=== PATIENT | female | born 1945 | race Caucasian/White ===

== ENCOUNTER → 2018-03-20 10:10 | Outpatient (CLI) | payer MEDICARE, SELFPAY ==
--- NOTE | 2018-03-20 10:14 | MM_ITS ---
MM Dig screening mamm BI w/CAD ORDERING PHYSICIAN : [facility] PATIENT AGE: 72 years GENDER: Female COMPARISON: August 2016, April 2015, 2013. Also additional views from April 2017. INDICATION: ITS.REASON: SCREENING no hormones no new complaints. Noncontributory family history TECHNIQUE: Standard CC and MLO images were obtained. R2 CAD reviewed. FINDINGS: Breast appears similar to previous studies with no significant new findings. Again There is moderately dense regions of fibroglandular tissue at the central central and superior breasts bilateral.. . no dominant mass nor suspicious calcifications.. RIGHT BREAST:Stereotactic biopsy at right breast is removed small calcifications here with a stable post biopsy metallic marker in this region. If anything the associated density here is diminished since the April 2017 study. Just anterior to this are dense calcifications from likely fibroadenoma or old fat necrosis. Subtle distortion of the central breast from likely previous biopsy appears similar. Stable. Follow-up in one year adequate LEFT BREAST:. There is been a previous stereotactic biopsy at the at the left breast of this is at the lateral/slight inferior retroareolar region with metallic marker clip seen here.. Left breast is stable with no significant new findings. Follow-up one year adequate. IMPRESSION Stable bilateral mammogram.. Follow-up in one year recommended Moderately dense breast with no significant new areas of concern. Previous stereotactic biopsy bilaterally BI-RADS Category: 2 Benign Finding(s) RECOMMENDED FOLLOW-UP: 1YR 1 YEAR FOLLOW-UP (A letter has been sent to the patient regarding results of the study.)
== END ==
PROVIDERS: PCP Nurse Practitioner Obstetrics & Gynecology; Visit Provider Nurse Practitioner Obstetrics & Gynecology
DX: Z12.31 Encounter for screening mammogram for malignant neoplasm of breast (principal)
CPT/HCPCS: 77067

== ENCOUNTER → 2018-06-19 12:41 | Outpatient (CLI) | payer MEDICARE, SELFPAY ==
--- NOTE | 2018-06-19 12:44 | XR_ITS ---
XR DEXA axial skeleton HISTORY: ITS.REASON: POST MENOPAUSAL ORDERING PHYSICIAN: Chente Arriaga MD PATIENT AGE: 73 years COMPARISON: None FINDINGS: The BMD measured at the Right femoral neck is 0.961 g/cm squared with a T score of -0.6. This is considered Normal according to the World Health Organization criteria. Fracture risk is Low. Treatment is advised. L1-L4 density has a T score of -0.2 within normal limits IMPRESSION: Normal bone density. Low fracture risk. Suggest follow-up exam May 2020
[2018-06-19 16:18] LABS: Anion Gap 14.5 mEq/L (5-15); Blood Urea Nitrogen 22 mg/dL (7-18); Calcium 9.6 mg/dL (8.5-10.1); Carbon Dioxide 26 mmol/L (21.0-32.0); Chloride 106 mmol/L (98-107); Estimated Glomerular Filt Rate 55 ml/min (>60); GFR (African American) 66 ML/MIN (>60); Glucose 98 mg/dL (74-106); Potassium 5.5 mmoL/L (3.5-5.1); Sodium 141 mmol/L (136-145)
== END ==
PROVIDERS: PCP Family Medicine; Visit Provider Family Medicine
DX: Z78.0 Asymptomatic menopausal state (principal); E87.5 Hyperkalemia
CPT/HCPCS: 36415; 77080; 80048

== ENCOUNTER → 2019-01-24 07:34 | Outpatient (CLI) | payer MEDICARE, SELFPAY ==
--- NOTE | 2019-01-24 07:40 | NVE_ITS ---
Venous Exam Indications: 729.5 Pain in limb. IMPRESSIONS 1. There is no evidence of significant Reflux. 2. No evidence of deep or superficial vein thrombosis involving the right lower extremity Right lower extremity venous duplex evaluation. Doppler flow study including spectral analysis, color and bullock scale imaging. Location: Vascular laboratory. Patient status: Outpatient. Tables: Venous flow and imaging: + +-------+ + Location Overall Flow properties + +-------+ + Right common femoral Patent Normal phasicity; spontaneous; normal augmentation; compressible + +-------+ + Right saphenofemoral junction Patent Compressible + +-------+ + Right profunda femoral Patent Compressible + +-------+ + Right femoral Patent Normal phasicity; spontaneous; normal augmentation; compressible + +-------+ + Right greater saphenous Patent Normal phasicity; spontaneous; normal augmentation; compressible + +-------+ + Right popliteal Patent Normal phasicity; spontaneous; normal augmentation; compressible + +-------+ + Right posterior tibial Patent Compressible + +-------+ + Right peroneal Patent Compressible + +-------+ + Right gastrocnemius Patent Compressible + +-------+ + Right soleal Patent Compressible + +-------+ + (Report amended ) Electronically signed by: Oli Bell [id number]
--- NOTE | 2019-01-24 08:05 | XR_ITS ---
XR hip RT 2-3V w/pelvis HISTORY: ITS.REASON: RT LEG PAIN ORDERING PHYSICIAN: Chente Arriaga MD PATIENT AGE: 73 years COMPARISON: None FINDINGS: No fracture or dislocation is evident. There is mild asymmetrical joint space narrowing of the right hip with minor spurring of the acetabulum. The left hip appears normal. The SI joints and symptoms pubis are normal. IMPRESSION: Mild to moderate osteoarthritic change right hip, no acute fracture seen
--- NOTE | 2019-01-24 08:05 | XR_ITS ---
XR knee RT 3V HISTORY: Right knee pain ITS.REASON: RT LEG PAIN ORDERING PHYSICIAN: Chente Arriaga MD PATIENT AGE: 73 years COMPARISON: None FINDINGS: No fracture or dislocation. No lytic or blastic change. Normal mineralization. There is mild joint space narrowing medially and there is spurring the tibial spines. There is prominent narrowing of the patellofemoral space. There is a small oval ossification measuring 7 mm in length projecting over the posterior tibial plateau best seen on the lateral projection. This could be an old osteochondral fracture of the lateral tibial spine presenting as a loose body within the joint. There is No definite effusion. IMPRESSION: Mild to moderate degenerative change, possible loose body as described, consider follow-up MRI scan for better evaluation.
== END ==
PROVIDERS: PCP Family Medicine; Visit Provider Family Medicine
DX: M79.604 Pain in right leg (principal); R60.0 Localized edema
CPT/HCPCS: 73502; 73562; 93971

== ENCOUNTER → 2019-02-04 07:49 | Outpatient (CLI) | payer MEDICARE, SELFPAY ==
--- NOTE | 2019-02-04 07:51 | MR_ITS ---
MR knee RT wo con HISTORY: Knee pain and swelling, pain with bending, possible loose body ITS.REASON: LOOSE BODY IN KNEE, RIGHT ORDERING PHYSICIAN: Chente Arriaga MD PATIENT AGE: 73 years Comparison: 01/24/2019 TECHNIQUE: Standard multiplanar multiecho sequences are performed without contrast. FINDINGS: The cruciate ligaments are intact. The collateral ligaments, patellar tendon, and quadriceps tendon appear intact. There is a horizontal tear involving the posterior horn of the lateral meniscus. There is grade 2 signal in the posterior horn of the medial meniscus but does not meet the strict MRI criteria for meniscal tear. There is mild thinning of the patellar cartilage along the lateral aspect. There are mild to moderate osteoarthritic changes of all 3 compartments. There is a small amount of bone marrow edema involving the lateral aspect of the distal femur and proximal tibia laterally with a small focal area of decreased T1 and increased T2 signal in the subcortical region of the lateral tibial plateau centrally. There is a medium sized suprapatellar effusion and there is a loculated Little's cyst measuring 5.8 cm cephalad to caudad and 1.2 cm in AP dimension. There was a question of a loose body on the radiograph along the knee joint posteriorly and centrally. This is likely related to an osteophyte of the lateral tibial spine as seen on the coronal T1-weighted image #18. IMPRESSION: 1. Horizontal tear involves the posterior horn lateral meniscus. 2. Tricompartmental osteoarthritic change with edema size suprapatellar effusion and loculated Little's cyst. 3. There are some mild bone marrow edema involving the lateral aspect of the distal femur and proximal tibia may related to the underlying osteoarthritic change. More focal area of decreased subarticular T1 and increased T2 signal is present in the central aspect of the lateral tibial plateau and could be related to a developing area of osteochondritis 4. No loose body apparent. Radiographic abnormality is felt to represent an atypical osteophyte
== END ==
PROVIDERS: PCP Family Medicine; Visit Provider Family Medicine
DX: M23.41 Loose body in knee, right knee (principal)
CPT/HCPCS: 73721

== ENCOUNTER → 2019-03-07 09:37 | Outpatient (CLI) | payer MEDICARE, SELFPAY ==
--- NOTE | 2019-03-07 09:41 | XR_ITS ---
XR knee RT 4V HISTORY: ITS.REASON: knee pain ORDERING PHYSICIAN: Nusrat Velazquez MD PATIENT AGE: 73 years COMPARISON: MRI scan right knee 02/04/2019 and plain films right knee 01/24/2019 FINDINGS: There is prominent spurring of the tibial spines. There is mild joint space narrowing laterally. There is minor narrowing of patellofemoral space. Again noted is a small smoothly marginated bone fragment projecting posterior to the femoral condyles on the lateral view and possibly resenting a periarticular calcification or ossification since no loose body is identified on MRI scan. No definite effusion is noted. IMPRESSION: Stable mild degenerative changes of the knee as noted
== END ==
PROVIDERS: PCP Family Medicine; Visit Provider Orthopaedic Surgery
DX: M25.561 Pain in right knee (principal)
CPT/HCPCS: 73564

== ENCOUNTER → 2019-05-28 15:38 | Outpatient (CLI) | payer MEDICARE, SELFPAY ==
--- NOTE | 2019-05-28 15:41 | MM_ITS ---
PROCEDURE: MM DIG SCREENING MAMM BI W/CAD CLINICAL INDICATION: SCREENING There is no personal or family history of breast cancer. Have been previous biopsies on each breast for benign disease. COMPARISON: DMDXUR DIG MAMM-DX UNI-RT W/CAD from 09/27/2016 DMDXUWAR DIG MAMM-DX UNI RT W/AV W/CAD from 05/08/2017 [facility] MM Dig screening mamm BI w/CAD from 03/20/2018 TECHNIQUE: Standard CC and MLO images were obtained. R2 CAD reviewed. FINDINGS: Moderate somewhat heterogenic fibroglandular densities are seen in the central portions of both breasts. There are stable macrocalcifications right breast and there are few benign-appearing microcalcifications left breast. There is a biopsy clip seen in each breast. There is no suspicious lesion in either breast and no suspicious microcalcifications. IMPRESSION: Moderate breast density with no suspicious lesions seen BI-RAD Category: 2 Benign Finding(s) FOLLOW-UP: 1YR 1 Year Follow-up (A letter has been sent to the patient regarding results of the study.) Dictated by: Dr. Anthony Rodas MD 05/30/2019 10:[address] Anthony Rodas MD in [place] 05/30/2019 10:41
== END ==
PROVIDERS: PCP Family Medicine; Visit Provider Nurse Practitioner Obstetrics & Gynecology
DX: Z12.31 Encounter for screening mammogram for malignant neoplasm of breast (principal)
CPT/HCPCS: 77067

== ENCOUNTER → 2020-05-31 10:39 | Outpatient (CLI) | payer MEDICARE, SELFPAY ==
--- NOTE | 2020-05-31 10:43 | MM_ITS ---
PROCEDURE: MM DIG SCREENING MAMM BI W/CAD Digital Breast Tomosynthesis Included CLINICAL INDICATION: SCREENING There is no personal or family history of breast cancer. There has been a previous biopsy left breast for benign disease. COMPARISON: MG DMDXUWAR DIG MAMM-DX UNI RT W/AV W/CAD from 05/08/2017 MG [facility] MM Dig screening mamm BI w/CAD from 03/20/2018 MG MM DIG SCREENING MAMM BI W/CAD from 05/28/2019 TECHNIQUE: Standard CC and MLO images and 3D Tomosynthesis was obtained. R2 CAD reviewed. FINDINGS: Scattered fibroglandular densities are seen in both breasts. There is stable benign-appearing macrocalcifications right breast. There are a few scattered benign-appearing microcalcifications in each breast. There is no new or suspicious lesion in either breast and no suspicious microcalcifications. IMPRESSION: Fibrofatty parenchyma with no suspicious lesions seen BI-RAD Category: 2 Benign Finding(s) FOLLOW-UP: 1YR 1 Year Follow-up (A letter has been sent to the patient regarding results of the study.) Dictated by: Dr. Anthony Rodas MD 06/02/2020 11:07 Dr. Anthony Rodas MD in [place] 06/02/2020 11:07
== END ==
PROVIDERS: PCP Family Medicine; Visit Provider Family Medicine
DX: Z12.31 Encounter for screening mammogram for malignant neoplasm of breast (principal)
CPT/HCPCS: 77063; 77067

== ENCOUNTER → 2020-07-26 10:15 | Outpatient (CLI) | payer MEDICARE, SELFPAY ==
[2020-07-26 12:28] LABS: Coronavirus 19 IgG Antibody Negative (Negative); Coronavirus 19 IgM Antibody Negative (Negative)
== END ==
PROVIDERS: Visit Provider Ophthalmology
DX: Z01.818 Encounter for other preprocedural examination (principal); Z98.42 Cataract extraction status, left eye
CPT/HCPCS: 86328

== ENCOUNTER 2020-07-27 08:04 | Day surgery (SDC) | payer MEDICARE, SELFPAY ==
[2020-07-20 10:15] VITALS: BMI 28.2
[2020-07-27 09:12] VITALS: BP 204/74; PULSE 58; RESP 18; TEMP 36.3; O2SAT 98
[2020-07-27 10:12] VITALS: BP 221/95; PULSE 61; RESP 16; O2SAT 98
[2020-07-27 10:17] VITALS: BP 201/84; PULSE 50; RESP 16; O2SAT 96
[2020-07-27 10:22] VITALS: BP 189/83; PULSE 53; RESP 16; O2SAT 97
[2020-07-27 10:27] VITALS: BP 182/79; PULSE 49; RESP 16; O2SAT 98
[2020-07-27 10:32] VITALS: BP 141/76; PULSE 54; RESP 16; TEMP 36.1; O2SAT 99
== END 2020-07-27 10:46 | disposition home or self-care (01) ==
LOC: OR 08:07
PROVIDERS: PCP Family Medicine; Visit Provider Ophthalmology
DX: H25.813 Combined forms of age-related cataract, bilateral (principal); M19.90 Unspecified osteoarthritis, unspecified site; E03.9 Hypothyroidism, unspecified; H91.90 Unspecified hearing loss, unspecified ear; Z85.828 Personal history of other malignant neoplasm of skin; Z79.899 Other long term (current) drug therapy
CPT/HCPCS: 66984; V2632

== ENCOUNTER → 2020-08-30 10:42 | Outpatient (CLI) | payer MEDICARE, SELFPAY ==
[2020-08-30 13:01] LABS: Coronavirus 19 IgG Antibody Negative (Negative); Coronavirus 19 IgM Antibody Negative (Negative)
== END ==
PROVIDERS: Visit Provider Ophthalmology
DX: Z01.812 Encounter for preprocedural laboratory examination (principal); Z11.52 Encounter for screening for COVID-19; H25.11 Age-related nuclear cataract, right eye
CPT/HCPCS: 36415; 86328

== ENCOUNTER 2020-08-31 08:00 | Day surgery (SDC) | payer MEDICARE, SELFPAY ==
[2020-08-25 09:00] VITALS: BMI 27.7
[2020-08-31 08:58] VITALS: BP 180/81; PULSE 65; RESP 18; TEMP 36.7; O2SAT 100
[2020-08-31 10:12] VITALS: BP 191/88; PULSE 46; RESP 20; O2SAT 100
[2020-08-31 10:17] VITALS: BP 192/80; PULSE 48; RESP 18; O2SAT 98
[2020-08-31 10:22] VITALS: BP 187/79; PULSE 47; RESP 18; O2SAT 100
[2020-08-31 10:27] VITALS: BP 180/77; PULSE 48; RESP 18; O2SAT 100
[2020-08-31 11:39] VITALS: BP 199/91; PULSE 71; RESP 18; TEMP 36.4; O2SAT 96
== END 2020-08-31 10:49 | disposition home or self-care (01) ==
LOC: OR 08:02
PROVIDERS: PCP Family Medicine; Visit Provider Ophthalmology
DX: H25.811 Combined forms of age-related cataract, right eye (principal); M19.90 Unspecified osteoarthritis, unspecified site; H91.90 Unspecified hearing loss, unspecified ear; E03.9 Hypothyroidism, unspecified; Z85.828 Personal history of other malignant neoplasm of skin; Z79.899 Other long term (current) drug therapy
CPT/HCPCS: 66984; V2632

== ENCOUNTER → 2020-12-10 10:23 | Outpatient (CLI) | payer MEDICARE, SELFPAY ==
--- NOTE | 2020-12-10 10:25 | XR_ITS ---
PROCEDURE: XR DEXA AXIAL SKELETON CLINICAL HISTORY: POST MENOPAUSAL COMPARISON: CR DEXAAX XR DEXA axial skeleton from 06/19/2018 FINDINGS: The right hip BMD is 0.767 with a T-score of -0.7. The left hip BMD is 0.83 with a T-score of -0 7. The lumbar spine BMD is 0.960 with a T-score of -0.8. Previously the lowest bone density was in the right femoral neck with a T-score -0.6 IMPRESSION: This patient is considered normal according to the World Health Organization criteria. Fracture risk is low. Based on these results a follow-up exam is recommended in 2 year. Dictated by: Oil Bell MD 12/14/2020 06:31 Oli Bell MD in [place] 12/14/2020 06:31
== END ==
PROVIDERS: PCP Family Medicine; Visit Provider Family Medicine
DX: Z78.0 Asymptomatic menopausal state (principal); M40.04 Postural kyphosis, thoracic region
CPT/HCPCS: 77080

== ENCOUNTER → 2021-03-29 14:35 | Outpatient (CLI) | payer MEDICARE, SELFPAY ==
[2021-03-29 15:03] LABS: Basophils % 1.4 % (0.1-2.0); Eosinophils % 1.2 % (0.1-12.0); Hematocrit 42.8 % (37.0-47.0); Hemoglobin 14.3 g/dL (12.2-16.2); Lymphocytes # 1.4 K/mm3 (0.7-4.5); Lymphocytes % 43.2 % (10-50); Mean Corpuscular HGB Conc 33.5 g/dL (31.8-35.4); Mean Corpuscular Hemoglobin 30.5 pg (27.0-31.2); Mean Corpuscular Volume 91.1 fl (81-99); Monocytes # 0.3 K/mm3 (0.1-1.0); Monocytes % 8.5 % (1.7-9.3); Neutrophils # 1.5 K/mm3 (1.8-7.8); Neutrophils % 45.7 % (37.0-80.0); Platelet Count 200 K/mm3 (142-424); Red Blood Count 4.69 M/mm3 (4.20-5.40); Red Cell Distribution Width 13.7 % (11.5-17.5); White Blood Count 3.2 K/mm3 (4.8-10.8)
== END ==
PROVIDERS: PCP Family Medicine; Visit Provider Nurse Practitioner
DX: Z20.822 Contact with and (suspected) exposure to COVID-19 (principal); U07.1 COVID-19
CPT/HCPCS: 36415; 85025; U0003

== ENCOUNTER → 2021-06-09 15:46 | Outpatient (CLI) | payer MEDICARE, SELFPAY ==
--- NOTE | 2021-06-09 15:49 | MM_ITS ---
PROCEDURE: MM DIG SCREENING MAMM BI W/CAD Digital Breast Tomosynthesis Included CLINICAL INDICATION: SCREENING There is no personal or family history of breast cancer. There have been previous biopsies on each breast for benign disease. COMPARISON: MG [facility] MM Dig screening mamm BI w/CAD from 03/20/2018 MG MM DIG SCREENING MAMM BI W/CAD from 05/28/2019 MG MM DIG SCREENING MAMM BI W/CAD from 05/31/2020 TECHNIQUE: Standard CC and MLO images and 3D Tomosynthesis was obtained. R2 CAD reviewed. FINDINGS: The breasts are composed primarily of fat with [id number] fibroglandular densities in the central portions of both breast. There is a biopsy clip in each breast. There is a macrocalcification central portion right breast. There are a few scattered microcalcifications in each breast. There is no suspicious lesion and no suspicious microcalcifications. IMPRESSION: Stable exam with no suspicious lesions seen BI-RAD Category: 2 Benign Finding(s) FOLLOW-UP: 1YR 1 Year Follow-up (A letter has been sent to the patient regarding results of the study.) Dictated by: Dr. Anthony Rodas MD 06/15/2021 08:44 Dr. Anthony Rodas MD in [place] 06/15/2021 08:44
== END ==
PROVIDERS: PCP Family Medicine; Visit Provider Family Medicine
DX: Z12.31 Encounter for screening mammogram for malignant neoplasm of breast (principal)
CPT/HCPCS: 77063; 77067

== ENCOUNTER → 2021-06-15 09:20 | Outpatient (CLI) | payer MEDICARE, SELFPAY ==
--- NOTE | 2021-06-15 09:24 | XR_ITS ---
PROCEDURE: XR KNEE RT 4V CLINICAL INDICATION: RT knee pain . COMPARISON: No exams were available for comparison FINDINGS: No fracture or dislocation. No lytic or blastic change. There is normal mineralization. There is mild narrowing of the joint space laterally. There is spurring of the tibial spines slightly more prominent lateral and medial. There is mild narrowing of the patellofemoral space with minimal spurring of the superior and inferior borders of the patella. There is no effusion. IMPRESSION: Mild degenerate changes as noted Dictated by: Dr. Anthony oRdas MD 06/15/2021 09:51 Dr. Anthony Rodas MD in [place] 06/15/2021 09:51
--- NOTE | 2021-06-15 09:24 | XR_ITS ---
PROCEDURE: XR HIP RT 2-3V W/PELVIS CLINICAL INDICATION: RT hip pain COMPARISON: No exams were available for comparison FINDINGS: No fracture or dislocation is evident. There is mild asymmetrical joint space narrowing and there is mild sclerotic change of the acetabular rim. The femoral head and neck appear intact. Similar but less prominent changes are seen left hip. The pubic bones appear normal in the SI joints are normal. IMPRESSION: Mild osteoarthritic change of both hips slightly more prominent right than left Dictated by: Dr. Anthony Rodas MD 06/15/2021 09:48 Dr. Anthony Rodas MD in [place] 06/15/2021 09:48
== END ==
PROVIDERS: PCP Family Medicine; Visit Provider Orthopaedic Surgery
DX: M25.551 Pain in right hip (principal); M17.11 Unilateral primary osteoarthritis, right knee
CPT/HCPCS: 73502; 73564

== ENCOUNTER → 2021-12-29 09:36 | Outpatient (CLI) | payer MEDICARE, SELFPAY ==
--- NOTE | 2021-12-29 09:42 | XR_ITS ---
FINAL REPORT CLINICAL HISTORY: knee pain COMPARISON: June 15, 2021 FINDINGS: RIGHT KNEE: Four views of the right knee were obtained. There is no acute fracture or dislocation. There are mild degenerative changes, worst in the lateral compartment. There is no soft tissue abnormality. IMPRESSION: Degenerative changes as above. Reviewed, Interpreted and Dictated by Joshua Lozoya III, MD Transcribed by Clair Licea Authenticated by Joshua Lozoya III, MD on 12/29/2021 10:57:45 AM [facility]
--- NOTE | 2021-12-29 09:42 | XR_ITS ---
FINAL REPORT CLINICAL HISTORY: ANDREWS KNEE PAIN FINDINGS: LEFT KNEE: Four views of the left knee were obtained. There is no acute fracture or dislocation. There are mild to moderate degenerative changes, worst in the medial compartment. There is medial compartment narrowing. There is no soft tissue abnormality. IMPRESSION: Degenerative changes as above. Reviewed, Interpreted and Dictated by Joshua Lozoya III, MD Transcribed by Clair Licea Authenticated by Joshua Lozoya III, MD on 12/29/2021 10:57:45 AM [facility]
== END ==
PROVIDERS: PCP Family Medicine; Visit Provider Orthopaedic Surgery
DX: M25.561 Pain in right knee (principal); M25.562 Pain in left knee
CPT/HCPCS: 73564

== ENCOUNTER → 2022-06-15 15:37 | Outpatient (CLI) | payer MEDICARE, SELFPAY ==
--- NOTE | 2022-06-15 15:52 | MM_ITS ---
PROCEDURE INFORMATION: Exam: MG Bilateral Screening 3D Mammography Exam date and time: 06/15/2022 3:44 PM Age: 77 years old Clinical indication: Screening mammogram TECHNIQUE: Imaging protocol: Bilateral Screening tomosynthesis and 2D mammography including computer-aided detection (CAD) when performed. COMPARISON: 1. MG MM DIG SCREENING MAMM BI W/CAD 06/09/2021 3:49 PM 2. MG MM DIG SCREENING MAMM BI W/CAD 05/31/2020 10:46 AM 3. MG MM DIG SCREENING MAMM BI W/CAD 05/28/2019 3:48 PM 4. MG [facility] MM Dig screening mamm BI w/CAD 03/20/2018 10:37 AM FINDINGS: MAMMOGRAPHY: Breast composition: There are scattered areas of fibroglandular density. Mass: Stable benign-appearing subcentimeter nodules are present in the left breast. No new or morphologically suspicious nodule has developed to suggest malignancy. Architectural distortion: No new or suspicious architectural distortion. Calcifications: Stable benign-appearing calcifications are present. No new or suspicious cluster of microcalcifications have developed. Asymmetric density: No new or suspicious asymmetric density is present Skin thickening: None. Axillary adenopathy: None. IMPRESSION: No mammographic evidence of malignancy. Recommend annual screening mammography unless otherwise clinically indicated. ASSESSMENT: BI-RADS category 2: Benign
== END ==
PROVIDERS: PCP Family Medicine; Visit Provider Family Medicine
DX: Z12.31 Encounter for screening mammogram for malignant neoplasm of breast (principal)
CPT/HCPCS: 77063; 77067

== ENCOUNTER → 2022-12-08 14:24 | Outpatient (CLI) | payer MEDICARE, SELFPAY ==
--- NOTE | 2022-12-08 14:29 | XR_ITS ---
FINAL REPORT CLINICAL HISTORY: Left knee pain COMPARISON: 12/29/2021 FINDINGS: Three views of the left knee reveal no evidence of fracture or dislocation. The bony alignment is normal. There is mild degenerative change. There is no evidence of joint effusion. No localized soft tissue abnormality is seen. IMPRESSION: No acute abnormality identified. Reviewed, Interpreted and Dictated by Joshua Lozoya III, MD Transcribed by Clair Licea Authenticated and [facility]
--- NOTE | 2022-12-08 14:29 | XR_ITS ---
FINAL REPORT CLINICAL HISTORY: Right knee pain COMPARISON: 12/29/2021 FINDINGS: Three views of the right knee reveal no evidence of fracture or dislocation. The bony alignment is normal. There is mild degenerative change. There is no evidence of joint effusion. No localized soft tissue abnormality is identified. IMPRESSION: Degenerative change with no acute abnormality identified. Reviewed, Interpreted and Dictated by Joshua Lozoya III, MD Transcribed by Clair Licea Authenticated and [facility]
--- NOTE | 2022-12-08 14:29 | XR_ITS ---
FINAL REPORT CLINICAL HISTORY: Right hip pain COMPARISON: 06/15/2021 FINDINGS: RIGHT HIP Two views of the right hip demonstrate no acute fracture or dislocation. There is moderate degenerative change. The visualized bony structures are well aligned. No soft tissue abnormality is seen. IMPRESSION: Degenerative change with no acute bony abnormality. Reviewed, Interpreted and Dictated by Joshua Lozoya III, MD Transcribed by Clair Licea Authenticated and [facility][1]
--- NOTE | 2022-12-08 14:29 | XR_ITS ---
FINAL REPORT CLINICAL HISTORY: Left hip pain COMPARISON: None FINDINGS: LEFT HIP: Two views of the left hip demonstrate no acute fracture or dislocation. Moderate degenerative change. The visualized bony structures are well aligned. No soft tissue abnormality is seen. IMPRESSION: Degenerative change with no acute bony abnormality. Reviewed, Interpreted and Dictated by Joshua Lozoya III, MD Transcribed by Clair Licea Authenticated and [facility]
== END ==
PROVIDERS: PCP Family Medicine; Visit Provider Orthopaedic Surgery
DX: M25.551 Pain in right hip; M25.552 Pain in left hip; M25.561 Pain in right knee; M25.562 Pain in left knee
CPT/HCPCS: 73502; 73562

== ENCOUNTER → 2023-03-01 09:15 | Outpatient (CLI) | payer MEDICARE, SELFPAY ==
--- NOTE | 2023-03-01 09:20 | XR_ITS ---
FINAL REPORT TECHNIQUE: Bone densitometry calculations of the lumbar spine and left hip were obtained. CLINICAL HISTORY: post menopausal FINDINGS: Using L1-4, the bone mineral density of the spine is 0.952 g/cm2, corresponding to T-score of -0.9. Using the left hip, the bone mineral density of the femoral neck is 0.884 g/cm2, corresponding to a T-score of -0.5. Using the right hip, the bone mineral density of the femoral neck is 0.868 g/cm2, corresponding to a T-score of -0.6. NOTE: T-score: Standard deviation compared with peak bone mass of young adult mean. *Following the recommendations of the International Society of Bone densitometry, classification of hip BMD is based on the lower of two T-scores; total hip or femoral neck. IMPRESSION: Normal bone mineral density of the lumbar spine and hip. FRAX was not reported because all of the T-scores are at or above -1.0. Reviewed, Interpreted and Dictated by Joshua Lozoya III, MD Transcribed by Diamond Laughlin Authenticated and [facility]
== END ==
PROVIDERS: PCP Family Medicine; Visit Provider Family Medicine
DX: Z78.0 Asymptomatic menopausal state (principal)
CPT/HCPCS: 77080

== ENCOUNTER → 2023-07-26 12:43 | Outpatient (CLI) | payer MEDICARE, SELFPAY ==
--- NOTE | 2023-07-26 12:52 | MM_ITS ---
PROCEDURE INFORMATION: Exam: MG Bilateral Screening 3D Mammography Exam date and time: 07/26/2023 12:47 PM Age: 78 years old Clinical indication: Screening. No family history of breast cancer. TECHNIQUE: Imaging protocol: Bilateral Screening tomosynthesis and 2D mammography including computer-aided detection (CAD) when performed. COMPARISON: 1. MG MM DIG SCREENING MAMM BI W/CAD 06/15/2022 3:52 PM 2. MG MM DIG SCREENING MAMM BI W/CAD 06/09/2021 3:49 PM 3. MG MM DIG SCREENING MAMM BI W/CAD 05/31/2020 10:46 AM FINDINGS: MAMMOGRAPHY: Breast composition: There are scattered areas of fibroglandular density. Mass: No suspicious mass. Architectural distortion: None. Calcifications: No suspicious calcifications. Asymmetric density: None. Skin thickening: None. Axillary adenopathy: None. IMPRESSION: No mammographic evidence of malignancy. Annual screening is recommended unless otherwise clinically indicated. ASSESSMENT: BI-RADS Category 1: Negative
== END ==
PROVIDERS: PCP Family Medicine; Visit Provider Family Medicine
DX: Z12.31 Encounter for screening mammogram for malignant neoplasm of breast (principal)
CPT/HCPCS: 77063; 77067

== ENCOUNTER 2024-01-15 13:00 | Outpatient (RCR) | payer MEDICARE, SELFPAY ==
--- NOTE | 2023-11-22 11:34 | HMH.PTOPWND ---
Rehab Outpt Wound Evaluation Rehab OP Wound Evaluation Start: 11/22/23 10:28 Freq: Status: Active Protocol: Document 11/22/23 11:18 BHAVNA (Rec: 11/22/23 11:34 PHORCONNIE [id number]) E-signed By Josh Stephens, PT Subjective/History History History This is the inital PT eval for Lisa Ladd, 78 yowf who presents with R king wound x ~ 2 mos. She reports, My fell and his head hit me on the king and my skin just tears so easy now. She reports having been on 3 rounds of oral abx. She also reports consistent pain the the armin-wound area. SHe has PMH of hypothyroidism and OA. Subjective Subjective Pain at worst is 7/10, Moderate blanchable erythema noted throughout the R lower leg. 1+ pitting edema in the R lower leg also. New diagnosis of cancer in past 12 No months? Wound Eval Wound Right Anterior King Wound Type Skin Tear Is This a Chronic Wound Yes Wound Length (cm) 7.0 Wound Width (cm) 6.7 Wound Depth (cm) 0.6 Wound Bed Appearance Beefy Red,Yellow Percentage Granulated (%) 90 Percentage of Slough (%) 10 Wound Margins Description Well Defined Surrounding Tissue Appearance [place] Edema Type Pitting Edema Degree 1+ Query Text:1+ Trace, Barely Detectable, Rebound 15-30 seconds 2+ Moderate, Slight Indentation, Rebound 10-20 seconds 3+ Deep, Deeper Indentation, Rebound > 30 seconds 4+ Very Deep, Rebound > 60 seconds Drainage Description Serosanguineous Drainage Amount Moderate Wound Topical Solution/Irrigant Saline Irrigant Primary Dressing Silver Dressing Comment opticell Ag Wound Secondary Dressing Type Absorbant Pad,Unna Boot Comment Optilock, 2-layer compression wrap. Wound Debridement Method Sharps,Forceps,Gauze, Mechanical Wound Debridement Amount of Tissue Minimal Removed Dressing Change Patient Tolerance Tolerated Well Wound Problems/Impairments Impairments Problems/Impairmments Palpation Tenderness,Increased Edema,Lymphedema Present, Wound Care Needs,Subjective C/ O Pain,Impaired Self Care/Self Management Prognosis Rehab Potential Good Clinical Impression Consistent with Diagnosis Yes Short Term Goals Number of Weeks 4 Decreased Palpation Tenderness Yes: 1/ R lower leg Decrease Wound Area Yes: by 25% Decrease Subjective C/O Pain Yes: 10 Health Program Analyst Goals Number of Weeks 6-8 Decreased Palpation Tenderness Yes: 0/4 R lower leg Decrease Edema Yes: no pitting edema R LE Decrease Wound Area Yes: by 75% Decrease Subjective C/O Pain Yes: 09/29 R lower leg Patient to be Ind w/ HEP Yes Outpatient Therapy Plan of Care Treatment Plan May Include Therapeutic Exercise Including Home Yes Exercise Program Manual Therapy Techniques Yes Neuromuscular Re-education Yes Therapeutic Activities to Return to Yes Previous Functional/Work Level ADL/Self Care Education Yes Orthotics/Bracing/Splinting Yes Manual Lymphatic Drainage Yes Wound Care Yes Eval/Re-Eval Yes Frequency Times per week 2 Duration Number of Weeks 6-8 Addendums This patient is a candidate for social No or vocational rehab? Patient/Guardian verbally acknowledges Yes understanding of treatment program and consents to further treatment? Patient/Guardian verbally acknowledges Yes understanding of diagnosis, prognosis and goals for treatment? Eval Complexity PT Charges 18689 - High Complexity PHYSICIAN CERTIFICATION: I certify the specified therapy services for Lisa Ladd are required, authorized, and reviewed every 30 days.
--- NOTE | 2023-12-25 15:55 | HMH.RHREAS ---
Rehab Reassessment Rehab OP Re-assessment Start: 11/22/23 10:28 Freq: Status: Active Protocol: Document 12/25/23 15:48 PHORCONNIE (Rec: 12/25/23 15:55 PHORCONNIE Laptop) E-signed By Josh Stephens, PT Rehab Re-assessment Subjective Subjective Pt reports she feels much better overall with no c/o increased pain with dressing changes now. Pain and swelling are improved. SHe has several new contusions noted on the R lower leg. I bumped into my husbands wheelchair. Objective Objective Notes R anterior superior king wound : L= 0.6 cm, W= 1.3 cm, D= 0.1 cm. R anterior inferior king wound : L= 1.4 cm, W= 3.0 cm, D= 0.1 cm. Total wound surface area healed = 89%. TTP: 08/23 to R lower leg Edema: 1+ pitting edema to R lower leg. Pain 3/10 at worst in R lower leg. Assessment Progress Assessment Progressing as Expected Assessment Notes Pt has shown significant reduction in R king wound size with one large wound now becoming two much smaller ones . She continues to have some pitting edema which limits her mobility at times, but this is decreasing. She continues to need skilled intervention to return to prior level of function. Patient goals met ST/3 LT Goals Not Met LT/5 Plan Plan Continue per initial POC. Frequency of Therapy 1-2 x/wk Duration of therapy 4 wks Time and Billing Re-Eval Time 10 Re-Eval Billing Units 0 PHYSICIAN CERTIFICATION: I certify the specified therapy services for Lisa Ladd are required, authorized, and reviewed every 30 days.
== END 2024-01-15 13:05 | disposition home or self-care (01) ==
LOC: PT 13:00
PROVIDERS: Visit Provider Family Medicine
DX: R23.8 Other skin changes (principal)
CPT/HCPCS: 29580; 97140; 97163; 97164; 97597; 97598

== ENCOUNTER 2024-09-23 13:29 | Outpatient (CLI) | payer MEDICARE, SELFPAY ==
--- NOTE | 2024-09-23 13:33 | XR_ITS ---
FINAL REPORT CLINICAL HISTORY: lt knee pain FINDINGS: LEFT KNEE 3 views of the left knee were obtained. There is no acute fracture or dislocation. There is advanced medial compartment joint space narrowing with subchondral sclerosis and osteophyte formation. Visualized joint spaces are normally aligned. Soft tissues are unremarkable. IMPRESSION: No acute bony abnormality. Reviewed, Interpreted and Dictated by Cedric Shankar MD Transcribed by Opal Miller Authenticated and [facility]
--- NOTE | 2024-09-23 13:33 | XR_ITS ---
FINAL REPORT CLINICAL HISTORY: Rt Knee Pain FINDINGS: RIGHT KNEE 3 views of the right knee were obtained. There is no acute fracture or dislocation. There are hypertrophic changes of the lateral compartment with osteophytes at the lateral joint and undersurface of the patella. Visualized joint spaces are normally aligned. Soft tissues are unremarkable. IMPRESSION: No acute bony abnormality. Reviewed, Interpreted and Dictated by Cedric Shankar MD Transcribed by Opal Miller Authenticated and [facility]
== END 2024-09-23 23:59 | disposition home or self-care (01) ==
LOC: RAD 13:30
PROVIDERS: PCP Family Medicine; Visit Provider Physician Assistant Surgical
DX: M25.562 Pain in left knee (principal); M17.11 Unilateral primary osteoarthritis, right knee
CPT/HCPCS: 73562

== ENCOUNTER 2025-01-16 16:30 | Outpatient (RCR) | payer MEDICARE, SELFPAY ==
--- NOTE | 2024-12-31 16:39 | HMH.PTOPWND ---
Rehab Outpt Wound Evaluation Rehab OP Wound Evaluation Start: 12/31/24 16:24 Freq: Status: Active Protocol: Document 12/31/24 16:24 BHAVNA (Rec: 12/31/24 16:39 PHORNE [id number]) E-signed By Josh Stephens, PT Subjective/History History History This is the initial PT wound care eval for Lisa Ladd, 79 yowf who presents with c/o B lower leg wounds present for ~ 6 wks at most. She reports the R lower leg wound was her initial problem which occurred 6 wks ago when I hit my leg on my 's wheelchair. She then suffered another injury to the L lower leg ~ 1 wk ago, I hit my other leg on a bucket. She reports no c/o pain at rest, but some tenderness with dressing changes. She is well known to this clinic and suffered similar injury ~ 1 yr ago. She has PMH of hypothyroidism and vitamin D deficiency. Subjective Subjective Currently no pain, 0/10. 2/4 TTP noted to armin-wound skin on B lower legs. Mild erythema to B lower legs and 1+ pitting edema throughout B lower legs with increased varicose veins noted. Wound Eval Wound Left Lateral Stauffer Wound Type Skin Tear Is This a Chronic Wound Yes Wound Length (cm) 5.4 Wound Width (cm) 6.8 Wound Depth (cm) 0.3 Wound Bed Appearance Beefy Red Percentage Granulated (%) 75 Wound Margins Description Well Defined Undermining Position 1 o'clock Undermining Depth (cm) 1.5 Surrounding Tissue Appearance [place] Edema Type Pitting Edema Degree 1+ Query Text:1+ Trace, Barely Detectable, Rebound 15-30 seconds 2+ Moderate, Slight Indentation, Rebound 10-20 seconds 3+ Deep, Deeper Indentation, Rebound > 30 seconds 4+ Very Deep, Rebound > 60 seconds Edema Appearance Puffy Drainage Description Serosanguineous Drainage Amount Moderate Primary Dressing contact layer and collagen Comment versatel one and puracol Wound Secondary Dressing Type Composite Comment optifoam gentle border Wound Debridement Method Forceps,Gauze,Mechanical Wound Debridement Amount of Tissue Minimal Removed Dressing Change Patient Tolerance Tolerated Well Right Upper Lateral Stauffer Wound Type Skin Tear Is This a Chronic Wound Yes Wound Length (cm) 3.8 Wound Width (cm) 2.8 Wound Depth (cm) 0.3 Wound Bed Appearance Beefy Red,Yellow Percentage Granulated (%) 50 Wound Margins Description Well Defined Surrounding Tissue Appearance [place] Edema Type Pitting Edema Degree 1+ Query Text:1+ Trace, Barely Detectable, Rebound 15-30 seconds 2+ Moderate, Slight Indentation, Rebound 10-20 seconds 3+ Deep, Deeper Indentation, Rebound > 30 seconds 4+ Very Deep, Rebound > 60 seconds Edema Appearance Puffy Drainage Description Serosanguineous Drainage Amount Small Primary Dressing Composite Comment optifoam gentle border Wound Debridement Method Forceps,Gauze,Mechanical Wound Debridement Amount of Tissue Minimal Removed Dressing Change Patient Tolerance Tolerated Well [place] Wound Assessment Tool Assessment Wound size 3= Length x Width 16.1--<36 sq cm Wound depth 3=Full thickness skin loss involving damage or necrosis of Wound edges 3=Well-defined, not attached to wound base Wound undermining 2=Undermining <2 cm in any area Necrotic tissue type 1=Non visible Necrotic tissue amount 1=None visible Exudate type 3=Serosanguineous: thin, watery, pale red/pink Exudate amount 4=Moderate Skin color surrounding wound 2=Bright red &/or blanches to touch Peripheral tissue edema 3=Non-pitting edema extends > or= to 4 cm around wound Peripheral tissue induration 1=None present Granulation tissue 2=Bright, beefy red;75% to 100 % of wound filled &/or tissue overgrowth Epithelialization 5= < 25% wound covered Wound assessment total score 33 Wound Problems/Impairments Impairments Problems/Impairmments Palpation Tenderness,Impaired Walking,Impaired Shower/ Bathing,Impaired Household Care,Increased Edema, Lymphedema Present,Wound Care Needs,Subjective C/O Pain, Impaired Self Care/Self Management Prognosis Rehab Potential Good Comment Skilled therapy is indicated to reduce overall wound surface area in order to aid pt healing and return pt to PLOF. Clinical Impression Consistent with Diagnosis Yes Consistent with ALSO Additional details: S89.225M for Unspecified open wound, left lower leg Short Term Goals Number of Weeks 4 Decreased Palpation Tenderness Yes: 1/4 TTP to B lower legs Decrease Wound Area Yes: by 25% Nursing Home Goals Number of Weeks 8 Decreased Palpation Tenderness Yes: 0/4 TTP to B lower leg wounds Improve Ability to Shower/Bathe Self Yes: without pain Decrease Wound Area Yes: by 75% Patient to be Ind w/ HEP Yes Patient to be Ind w/ Home Wound Care/ Yes Dressing Changes Outpatient Therapy Plan of Care Treatment Plan May Include Therapeutic Exercise Including Home Yes Exercise Program Manual Therapy Techniques Yes Neuromuscular Re-education Yes Therapeutic Activities to Return to Yes Previous Functional/Work Level ADL/Self Care Education Yes Orthotics/Bracing/Splinting Yes Wound Care Yes Eval/Re-Eval Yes Frequency Times per week 2 Duration Number of Weeks 8 Addendums This patient is a candidate for social No or vocational rehab? Patient/Guardian verbally acknowledges Yes understanding of treatment program and consents to further treatment? Patient/Guardian verbally acknowledges Yes understanding of diagnosis, prognosis and goals for treatment? Eval Complexity PT Charges 23828 - High Complexity PHYSICIAN CERTIFICATION: I certify the specified therapy services for Lisa Ladd are required, authorized, and reviewed every 30 days.
== END 2025-01-16 23:59 | disposition home or self-care (01) ==
LOC: PT 16:30
PROVIDERS: PCP Family Medicine; Visit Provider Family Medicine
DX: S81.801A Unspecified open wound, right lower leg, initial encounter (principal); W22.8XXA Striking against or struck by other objects, initial encounter
CPT/HCPCS: 97163; 97597; 97598

== ENCOUNTER 2025-01-22 11:20 | Outpatient (CLI) | payer MEDICARE, SELFPAY | END 2025-01-22 23:59 | disposition home or self-care (01) | LOC: LAB.DROPOF 11:20 | PROVIDERS: PCP Family Medicine; Visit Provider Family Medicine | DX: S81.802D Unspecified open wound, left lower leg, subsequent encounter (principal) | CPT/HCPCS: 87070; 87077; 87205 ==

== ENCOUNTER 2025-02-13 16:00 | Outpatient (RCR) | payer MEDICARE, SELFPAY ==
--- NOTE | 2025-01-29 15:16 | HMH.RHREAS ---
Rehab Reassessment Rehab OP Re-assessment Start: 01/20/25 16:56 Freq: Status: Active Protocol: Document 01/29/25 14:33 PHORCONNIE (Rec: 01/29/25 15:16 PHORNE [id number]) E-signed By Josh Stephens, PT [facility] Wound Assessment Tool Assessment Wound size 3= Length x Width 16.1--<36 sq cm Wound depth 3=Full thickness skin loss involving damage or necrosis of Wound edges 3=Well-defined, not attached to wound base Wound undermining 1=None present Necrotic tissue type 2=White/newell non-viable tissue &/or non-adherent yellow slough Necrotic tissue 2=<25% of wound bed covered amount Exudate type 3=Serosanguineous: thin, watery, pale red/pink Exudate amount 4=Moderate Skin color 1=[place] or normal for ethnic group surrounding wound Peripheral tissue 2=Non-pitting edema extends <4 cm around wound edema Peripheral tissue 1=None present induration Granulation tissue 2=Bright, beefy red;75% to 100% of wound filled &/or tissue overgrowth Epithelialization 4=25% to < 50% wound covered Wound assessment 31 total score Rehab Re-assessment Subjective Subjective Pt reports no c/o pain or tenderness to palpation in B lower leg wounds or armin-wound skin this date. She reports she was worried about her legs, but does feel a little better overall. She tolerates the dressing changes well without c/o. Wound swab culture was obtained ~1 wk ago and no organisms noted on reports currently available. Objective Objective Notes L king wound: L= 4.1 cm, W= 5.2 cm, D= 0.2 cm 42% healed surface area. R king wound: L= 1.0 cm, W= 0.7 cm, D= 0.1 cm 93% healed surface area. TTP: 0/4 B lower legs. Assessment Progress Assessment Progressing as Expected Assessment Notes Pt has shown significant reduction of overall surface area on B lower leg wounds based on measurements for each as noted. Skilled therapy does remain indicated to further reduce total wound surface area and improve wound healing in order to return pt to PLOF with all ADLs. Patient goals met ST/2 LT/4 Plan Plan Continue per initial POC. Frequency of Therapy 1-2 x/wk Duration of therapy 4 wks Time and Billing Re-Eval Time 12 Re-Eval Billing 0 Units Charge for PT No reassessment? PHYSICIAN CERTIFICATION: I certify the specified therapy services for Lisa Ladd are required, authorized, and reviewed every 30 days.
== END 2025-02-13 23:59 | disposition home or self-care (01) ==
LOC: PT 16:00
PROVIDERS: PCP Family Medicine; Visit Provider Family Medicine
DX: S81.801A Unspecified open wound, right lower leg, initial encounter (principal)
CPT/HCPCS: 97597; 97598

== ENCOUNTER 2025-02-16 13:40 | Outpatient (CLI) | payer MEDICARE, SELFPAY ==
--- OUTSIDE RECORDS SUMMARY | 2025-01-02 11:30 | XMS_ITS ---
Author Organization [facility] Address [address] [facility] [address] [place] [id number] Care Team Providers Care Match Up Worker Name Role Phone Clyde Arriaga Primary Care Provider Deniz Silva Unavailable [phone] Devendra Caina Unavailable [phone] Allergies No Known Allergies REASON FOR VISIT Suture Removal Medications Medication SIG (Take, Route, Frequency, Duration) Notes Start Date End Date Status Levothyroxine Sodium 112 MCG TAKE 1 TABLET EVERY DAY; Duration: 90 days Active Mupirocin 2 % 1 application Outboard Motorboat Rigger ally Twice a day Active Glucosamine 1500 Complex - 2 capsules Orally daily Active Vitamin D (Cholecalciferol) 50 MCG (1999) 1 capsule Orally Once a day; Duration: 30 day(s) Active metOLazone 2.5 MG 1 tablet Orally Once a day prn; Duration: 30 days Active hydrOXYzine HCl 10 MG 1 tablet as needed Orally three times a day as needed 02/25/2024 Active Rosuvastatin Calcium 10 MG 1 tablet Oral ly Once a day; Duration: 30 day(s) 08/14/2024 Active Social History Tobacco Use: Social History Observation Description Date Details (start date - stop date) Never Smoker NA - NA CURRENT TOBACCO USE: Question Answer Notes Are you a: never smoker Vital Signs Blood pressure systolic 160 mm Hg 01/03/20 25 Blood pressure diastolic 82 mm Hg 025 Heart Rate 55 /min 01/02/2025 Height 65.5 in 01/02/2025 Weight 171 lbs 01/02/2025 BMI 28.02 kg/m2 01/02/2025 Encounters Encounter Location Date Provider Diagnosis [facility] [address] [facility] [address] [place] [id number] 01/02/2025 Nallley Moreparveen Visit for suture removal Z48.02 Assessments Encounter Date Diagnosis (ICD Code) Assessment Notes Treatment Notes Treatment Clinical Notes Section Notes 01/02/2025 Visit for suture removal (ICD-10 - Z48.02) Sutures removed with suture removal kit. Healing well. Plan Of Treatment Treatment Notes Assessment Notes Visit for suture removal Sutures removed with suture removal kit. Healing well. Next Appt Details Follow Up: prn, Reason: Provider Name:Clyde Lewis, 02/26/2025 04:15:00 PM, [address], [address], [place], [id number], Progress Notes * Lazarus MCCLELLANDaDOB:1945 (79 yo F)Acc No.[id number]:01/02/2025 Progress Notes Patient: Lisa GIBBONS Provider: YULISA eLal :1945 A ge:79 Y S ex:Female Date:01/02/2025 Address:[address] [place] [address], [place], [id number] Pcp:Clyde Arriaga Subjective: * Chief Complaints: * 1 . Suture Removal. * HPI: D ermatology: 79 year old female presents with c/o Suture Removal T he pt states she is doing good and the wound is healing well. * ROS: D ERMATOLOGY: no R kathy. n o H maritza. G ASTROENTEROLOGY: no N ausea. n o V omiting. n o D iarrhea.? U ROLOGY: no D ifficulty urinating. n o B lood in urine. * Medical History: H ypothyroidism, Hiatal Hernia, Hyperlipidiemia, Osteo Arthritis, Presbycusis - bilateral hearing aides, Vitamin D deficiency. * Surgical History: B TL , cataract surgery-both eyes 08/08/2021. * Family History: F ather: unknown. M other: unknown. C hildren: daughter has asthma and oral cancer.?1 son(s) , 1 daughter(s) . . pt adopted. * Social History: C URRENT TOBACCO USE A re you a: n ever smoker. C affeine: yes, frequency:. Exercise: yes. Home smoke detector use: yes. Marital Status: . Occupation: homemaker. Past smoking status: no. Recreational drug use: no. Alcohol: no. * Medications: T aking Glucosamine 1500 Complex - Capsule 2 capsules Orally daily , Taking Vitamin D (Cholecalciferol) 50 MCG (2000 UT) Capsule 1 capsule Orally Once a day , Taking hydrOXYzine HCl 10 MG Tablet 1 tablet as needed Orally three times a day as needed , Taking Rosuvastatin Calcium 10 MG Tablet 1 tablet Orally Once a day , Taking metOLazone 2.5 MG Tablet 1 tablet Orally Once a day prn , Taking Levothyroxine Sodium 112 MCG Tablet TAKE 1 TABLET EVERY DAY , Taking Mupirocin 2 % Ointment 1 application Externally Twice a day , Medication List reviewed and reconciled with the patient * Allergies: N .K.D.A. Objective: * Vitals: W t: 171, Temp: 98.5, BP: 160/82, HR: 55, Nurse: MARGE, Ht: 65.5, BMI:28.02. * Examination: D ermatology: Extremities: right mid king with 4 simple interrupted sutures removed without difficulty. Assessment: * Assessment: 1. V isit for suture removal - Z48.02 (Primary) Plan: * Treatment: * Follow Up: p rn * Images: Billing Information: * Visit Code: * Procedure Codes: * Electronic signature of YULISA Jordan on 02/16/2025 at 01:43 PM EDT Sign off status: Pending * Provider: YULISA Leal Date: 0 01/02/2025 Generated for Antonio copeland/Zack/Edda on: 0 02/16/2025 01:43 PM EDT History and Physical Notes * HPI (History of Present Illness) Category Sub-Category Detail Notes Category Not es Dermatology Suture Removal The pt states sh e is doing good and the wound is healing well Examination Category Sub-Category Detail Notes Category Not es Dermatology Extremities: right mid king w ith 4 simple interrupted sutures removed without difficulty
--- OUTSIDE RECORDS SUMMARY | 2025-01-21 11:15 | XMS_ITS ---
[facility] [address] [facility] [address] [place] [id number] Care Team Providers Care Sweater Designer Name Role Phone Clyde Arriaga Primary Care Provider Deniz Silva Unavailable [phone] Allergies No Known Allergies Results Component Value [...] Signs Blood pressure systolic 160 mm Hg 01/22/20 25 Blood pressure diastolic 84 mm Hg 025 Heart Rate 59 /min 01/21/2025 Height 65.5 in 01/21/2025 Weight 172.2 lbs 01/21/2025 BMI 28.22 kg/m2 01/21/2025 Encounters Encounter Location Date Provider Diagnosis [facility] [address] [facility] [address] [facility] [address] [place], [place] [phone] 01/21/2025 [place] Open wound of left lower extremity, subsequent encounter S81.802D and BMI 28.0-28.9,adult Z68.28 Assessments Encounter Date Diagnosis (ICD Code) Assessment Notes Treatment Notes Treatment Clinical Notes Section Notes 01/21/2025 Open wound of left lower extremity, subsequent encounter (ICD-10 - S81.802D) Keep follow up appt. at [facility] wound care clinic 01/21/2025 BMI 28.0-28.9,adult (ICD-10 - Z68.28) Plan Of Treatment Medication Medication Name Sig Start Date Stop Date Notes Cephalexin 500 MG 1 capsule Orally twi ce a day; Duration: 10 days 01/21/2025 Treatment Notes Assessment Notes Open wound of left lower ext remity, subsequent encounter Keep follow up appt. at [facility] wound care clinic Next Appt Details Follow Up: via phone to repo rt test results, Reason: Provider Name:Clyde Lewis, 02/26/2025 04:15:00 PM, [address] [facility] [address] [facility], [address], [place], [place], [id number], Progress Notes * Toshia MCCLELLANDJoeB:1945 (79 yo F)Acc No.[id number]:01/21/2025 Progress Notes Patient: Lisa GIBBONS Provider: Callie Silva M.D. :1945 A ge:79 Y S ex:Female Date:01/21/2025 Address:[address] [place] [address] [place], [place], [id number] Pcp:Clyde Arriaga Subjective: * Chief Complaints: * [...] of left lower extremity, subsequent encounter - S81.802D (Primary) ?2. B [place] 28.0-28.9,adult - Z68.28 Plan: * Treatment: Notes: Keep follow up appt. at [facility] wound care clinic?? * Procedure Codes: G 2211 Complex e/m visit add on, 1036F TOBACCO NON-USER, G8420 BMI<30 AND >=22 CALC & DOCU * Follow Up: v ia phone to report test results * Images: Billing Information: * Visit Code: 08587 Office Visit, Est Pt., Level 3. * Procedure Codes: G2211 Complex e/m visit add on. 1036F TOBACCO NON-USER. G8420 BMI<30 AND >=22 CALC & DOCU. * Electronic signature of Hansa Silva MD on 02/16/2025 at 01:42 PM EDT Sign off status: Pending * Provider: Callie Silva M.D. Date: 0 01/21/2025 Generated for Antonio copeland/Zack/Randallitting on: 02/16/2025 01:42 PM EDT History and Physical Notes * [...]
--- OUTSIDE RECORDS SUMMARY | 2025-02-02 10:23 | XMS_ITS ---
Author Organization [facility] Address [address] [facility] [address] [facility] [address] [place] [id number] Care Team Providers Care Story Teller Name Role Phone Clyde Arriaga Primary Care Provider Deniz Silva Unavailable [phone] REASON FOR VISIT due bone density Encounters Encounter Location Date Provider Diagnosis [facility] [address] [facility] [address] [facility] [address] [place] [id number] 02/02/2025 Clyde Arriaga Screening for osteoporosis Z13.820 Assessments Encounter Date Diagnosis (ICD Code) Assessment Notes Treatment Notes Treatment Clinical Notes Section Notes 02/02/2025 Screening for osteoporosis (ICD-10 - Z13.820) Plan Of Treatment Pending Test Test Name Order Date Bone density 02/02/2025 Next Appt Details Provider Name:Clyde Lewis, 02/26/2025 04:15:00 PM, [address] [facility] [address] [facility], [address], [place], [phone], Progress Notes * Toshia MCCLELLANDcarmelaDOB:1945 (79 yo F)Acc No.[id number]:02/02/2025 Patient: Lisa GIBBONS :1945 A ge:79 Y S ex:Female Address:[address] [place] [address] Subjective: * Chief Complaints: * D ue bone density * Medical History: * Surgical History: * Hospitalization/Major Diagno stic Procedure: * Medications: Objective: * Vitals: * Physical Examination: Assessment: * Assessment: 1. S creening for osteoporosis - Z13.820 (Primary) Plan: * Treatment: * Procedure Codes: * true * Date: Generated for Antonio copeland/Zack/Edda on: 0 02/16/2025 01:42 PM EDT
--- OUTSIDE RECORDS SUMMARY | 2025-02-16 13:42 | XMS_ITS | Patient Health Record ---
Author Organization [facility] Address [address] [facility] 36 [facility] [address] [place] [id number] Care Team Providers Care Exit Booth Agent Name Role Phone Clyde Arriaga Primary Care Provider [phone] Deniz Silva Unavailable [phone] Shahrzad Lincoln Unavailable [phone] Nallely Cain Unavailable [phone] Allergies No Known Allergies Results Component Value Reference Range Notes P-Comprehensive Metabolic Pa roni (CMP) Reviewed date:08/14/2024 08:43:23 AM Interpretation:K+ 5.5, bun 27, Cr 1.2, gfr 47 Performing Lab: Notes/Report: Test performed by [facility] [address] [place] [address] , [address], [place] [address] Fadi Shafer MD, Machinery Repair Maintenance Supervisor CLIA: [id number] Sodium 142 135-145 mmol/L Potassium 5.5 3.5-5.3 mmol/L Chloride 108 97-108 mmol/L CO2 23 22-32 mmol/L Glucose 95 65-99 mg/dL BUN 27 8-23 mg/dL Creatinine 1.20 0.50-1.00 mg/dL Calcium 9.9 8.6-10.4 mg/dL eGFR by Creatinine 47 >59 mL/min/1.73m2 Protein 6.5 6.0-8.3 g/dL Albumin 4.4 3.5-5.3 g/dL Alkaline Phosphatase 53 35-121 IU/L ALT (SGPT) 9 <5-47 IU/L AST (SGOT) 18 <5-40 IU/L Bilirubin, Total 0.7 <0.2-1.2 mg/dL A/G Ratio 2.1 1.1-2.5 P-Lipid Panel Reviewed date:08/14/2024 08:43:23 AM Interpretation:chol 250, non-hdl 173, ldl 152 Performing Lab: Notes/Report: Test performed by [facility] [address] , [address], [place] [address] Fadi Shafer MD, Machinery Repair Maintenance Supervisor CLIA: [id number] Cholesterol 250 <200 mg/dL Triglycerides 105 <150 mg/dL HDL Cholesterol 77 >39 mg/dL Cholesterol / HDL Ratio 3.25 0.00-4.44 Ratio Non-HDL Cholesterol 173 <130 mg/dL LDL Cholesterol (Calculation) 152 <130 mg/dL LDL Cholesterol Levels* Less than 100 mg/dL Optimal 100 to 129 mg/dL Near Optimal/ Above Optimal 130 to 159 mg/dL Borderline High 160 to 189 mg/dL High 190 mg/dL and above Very High * Categories as recommended by the 2004 ATPIII guidelines LDL/HDL Ratio 2.0 <3.3 Ratio LDL Cholesterol Patient History Test Date: 08/09/2023 LDL Results: 106 Units: mg/dL % Change: -15% Test Date: 02/07/2024 LDL Results: 143 Units: mg/dL % Change: +34% Test Date: 08/07/2024 LDL Results: 152 Units: mg/dL % Change: +6% P-TSH Reviewed date:08/14/2024 08:43:23 AM Interpretation:Normal Performing Lab: Notes/Report: Test performed by [facility] [address] , [address], [place] [address] Fadi Shafer MD, Machinery Repair Maintenance Supervisor CLIA: [id number] TSH 0.99 0.43-5.25 mU/L H-Wound culture Reviewed date:02/04/2025 03:52:12 PM Interpretation:NL gram stain Performing Lab: Notes/Report: GS Gram Stain: GS No Organisms Seen P-Surgical Pathology Reviewed date:08/26/2024 09:46:22 AM Interpretation:Hypertrophic actinic keratosis, transected Performing Lab: Notes/Report: Surgical Pathology View Report Patient Name: LISA MCCLELLAND Age-Sex-: 79y F 1945 Procedure Date: 08/19/2024 Accession Date: 08/20/2024 Pt Acct#: Report Date: 08/21/2024 Location: OFFICE Physician(s): Chente Arriaga MD P A T H O L O G Y R E P O R T DIAGNOSIS: Skin, right king, biopsy: Hypertrophic actinic keratosis, transected. Clair Rome MD electronically signed 08/21/2024 02:20 PM Gross Description: Received in formalin labeled Lisa Mcclelland, suspicious lesion right lower leg per requisition right king is a bullock-white to bullock-hwang and mottled brown raised rough portion of skin measuring 0.7 x 0.6 x 0.2 cm. The margin is inked blue. The specimen is bisected and totally submitted in cassette 1A, 09/20. (AES,SA12,eh) Grossing services provided by [facility], [facility], d/b/a [address] [place], [address] Montrell Goncalves MD, Machinery Repair Maintenance Supervisor. Microscopic Description: There is hypertrophy of the epidermis with cytologic atypia of keratinocytes. Overlying parakeratosis is also present. The dermis shows solar elastosis and chronic lymphocytic inflammation. There is no invasive carcinoma present. However, as the lesion is transected underlying squamous carcinoma cannot be ruled out. Clinical correlation is recommended. Clinical History: Neoplasm of uncertain behavior of skin (D48.5); suspicious skin lesion of the right lower leg Time of Collection of Tissue: 0240 pm Time of Immersion of Tissue in Fixative: 0241 pm Specimen List: Suspicious lesion right king Unless specified otherwise above, the quality of the H and E and any other stains performed is satisfactory, and any internal or external positive and negative controls react appropriately. End of Report Technical services provided by [facility], [facility], d/b/a [facility], [address] [place] [address] , [place] [address] Montrell Goncalves MD, Machinery Repair Maintenance Supervisor. Case reviewed and diagnosis rendered at [facility], [facility], d/b/a [address] , [place] [address] Montrell Goncalves MD, Machinery Repair Maintenance Supervisor. CONFIDENTIAL P-Surgical Pathology Reviewed date:01/06/2025 10:26:21 AM Interpretation:Hypertrophic actinic keratosis, extending to the peripheral margin Performing Lab: Notes/Report: Surgical Pathology View Report Patient Name: LISA MCCLELLAND Age-Sex-: 79y F 1945 Procedure Date: 12/25/2024 Accession Date: 12/27/2024 Pt Acct#: Report Date: 12/30/2024 Location: OFFICE Physician(s): Chente Arriaga MD P A T H O L O G Y R E P O R T DIAGNOSIS: Skin, right lower leg, shave biopsy: Hypertrophic actinic keratosis, extending to the peripheral margin. Clair Rome MD electronically signed 12/30/2024 11:34 AM Gross Description: The specimen is received in a container of formalin labeled Lisa Mcclelland, skin lesion. Per the requisition the site is right lower leg and the specimen consists of bullock-hwang, granular, raised and irregular portion of skin measuring 1.5 x 0.5 x 0.2 cm. Eccentrically located on the skin surface is yellow-hwang, raised, firm and irregular lesion measuring 0.5 cm in greatest dimension. The lesion is 0.1 cm from the nearest margin. The margin is inked blue. The specimen is sectioned and totally submitted in cassettes 1A and 1B. The tips are submitted in cassette 1A, 09/20; 1B, 11/18. (TMG,AJC,6) Grossing services provided by [facility], [facility], d/b/a [address] [place], [address] Montrell Goncalves MD, Machinery Repair Maintenance Supervisor. Microscopic Description: There is hypertrophy of the epidermis with cytologic atypia of keratinocytes. Overlying parakeratosis is also present. The dermis shows solar elastosis and chronic lymphocytic inflammation. There is no invasive carcinoma present. There is a cutaneous horn associated with the lesion. Clinical History: Other skin changes (R23.8), suspicious skin lesion Specimen List: Right lower leg skin lesion Unless specified otherwise above, the quality of the H and E and any other stains performed is satisfactory, and any internal or external positive and negative controls react appropriately. End of Report Technical services provided by [facility] d/b/a [address] , [place] [address] Montrell Goncalves MD, Machinery Repair Maintenance Supervisor. Case reviewed and diagnosis rendered at [facility] [place], d/b/a [address] , [place] [address] Montrell Goncalves MD, Machinery Repair Maintenance Supervisor. CONFIDENTIAL CBC Fingerstick (in house) Reviewed date:07/28/2024 11:09:39 PM Interpretation: Performing Lab: Notes/Report: wbc 5.5 3.5 - 10 lym 20.2% 15 - 50 mid 6.2% 2 - 15 gran 73.6% 35 - 80 rbc 4.63 3.5 - 5.5 hgb 14.3 11.5 - 16.5 hct 43.2 35 - 55 mcv 93.2 75 - 100 mch 31.0 25 - 35 mchc 33.2 31 - 38 plat 197 100 - 400 H-Aerobe ID and Sensitivitiy Reviewed date:02/04/2025 03:52:12 PM Interpretation: Performing Lab: Notes/Report: AERIDSRES Final report AERIDSRES1 Corynebacterium simulans AERIDSRES1 Performed at: [facility] AERIDSRES1 [address] [place] [id number] AERIDSRES1 Air Defense Specialist: Anisha Morillo PhD, Phone: [phone] AERIDSRES1 Comment AERIDSRES5 S = Susceptible; I = Intermediate; R = Resistant AERIDSRES5 P = Positive; N = Negative AERIDSRES5 MICS are expressed i n micrograms per mL AERIDSRES5 Antibiotic RSLT#1 RS LT#2 RSLT#3 AERIDSRES5 RSLT#4 AERIDSRES5 Erythromycin S AERIDSRES5 Penicillin S AERIDSRES5 Tetracycline S AERIDSRES5 Vancomycin S AERIDSRES5 Performed at: [facility] AERIDSRES5 [address] [place], [place] [id number] AERIDSRES5 Air Defense Specialist: Anisha Morillo PhD, Phone: [phone] AERIDSRES5 Comment Reason For Referral Reason [facility] wound care Diagnosis 1 Open wound of right lower extremity, initial encounter (S81.801A) Referral Organization [facility] Referring Provider First Name Deniz Referring Provider Last Name Shira Referring Provider Speciality Family Pra ctice Referred Provider Specialty Physical The rapist General Notes Saumya Siegel 2024 02:26:23 PM > faxed to [facility] PTChristal Brynn 12/18/2024 09:41:09 AM > 12/31/2024 at 3pm Referral Priority Routine Medications Medication SIG (Take, Route, Frequency, Duration) Notes Start Date End Date Status metOLazone 2.5 MG 1 tablet Orally Once a day prn; Duration: 30 days Active Rosuvastatin Calcium 10 MG 1 tablet Oral ly Once a day; Duration: 30 day(s) 08/14/2024 Active Levothyroxine Sodium 112 MCG 1 tablet in the morning on an empty stomach Orally Once a day; Duration: 90 days Active Vitamin D (Cholecalciferol) 50 MCG (1999 UT) 1 capsule Orally Once a day; Duration: 30 day(s) Active hydrOXYzine HCl 10 MG 1 tablet as needed Orally three times a day as needed 02/25/2024 Active Cephalexin 500 MG 1 capsule Orally twi ce a day; Duration: 10 days 01/21/2025 Active Glucosamine 1500 Complex - 2 capsules Orally daily Active Immunizations Vaccine Route Administration Date Status Comme nts Tetanus Tdap-Adacel (over 7yrs) Unknown 06/21/2006 Administered Tetanus Tdap-Adacel (over 7yrs) IM Intramuscular 06/07/2018 Administered Prevnar (PCV13) IM Intramuscular 06/07/2018 Administered PNEUMOVAX 23 VACCINE IM Intramuscular 06/10/2019 Administe red Fluzone High Dose (65yr and older) IM Intramuscular 06/10/2018 Administered Fluzone High Dose (65yr and older) IM Intramuscular 06/10/2019 Administered Fluzone High Dose (65yr and older) IM Intramuscular 06/08/2020 Administered Fluzone High Dose (65yr and older) IM Intramuscular 06/07/2021 Administered Fluzone High Dose (65yr and older) IM Intramuscular 06/06/2022 Administered Fluzone High Dose (65yr and older) Unknown 06/06/2022 Administered Fluzone High Dose (65yr and older) IM Intramuscular 05/08/2023 Administered Fluzone High Dose (65yr and older) IM Intramuscular 06/12/2024 Administered DT, 7 YEARS OR OLDER Unknown 10/23/1996 Administered Social History Tobacco Use: Social History Observation Description Date Details (start date - stop date) Never Smoker NA - NA CURRENT TOBACCO USE: Question Answer Notes Are you a: never smoker Problems Problem Type SNOMED Code ICD Code Onset Dates Problem Status W/U Status Risk Notes Problem Vitamin D deficiency (10275219) Vitamin D deficiency (E55.9) Active confirmed Problem Rhinitis (93788076) Rhinitis (J31.0) Active confirmed Problem Environmental allergy (949359851) Environmental allergies (Z91.048) Active confirmed Problem Localized edema (1712887) Localized edema (R60.0) Active confirmed Problem Acquired hypothyroidism (457217103) Acquired hypothyroidism (E03.9) Active confirmed Problem Squamous cell carcinoma of skin (192313195) Squamous cell carcinoma of skin (C44.92) Active confirmed Problem Dyslipidemia (215147574) Dyslipidemia (E78.5) Active confirmed Problem 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 Problem Bilateral arthritis of knees (9634819625281459 ) Primary osteoarthritis of knees, bilateral (M17.0) Active confirmed Problem Menopausal state (059325286) Menopausal state (N95.1) Active confirmed Problem Primary squamous cell carcinoma of skin of right lower limb (8809871814857368 ) 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 0 and Pruritus L29.9 [facility] [address] [id number] 03/25/2024 R Joshua Arriaga Wax in ear H61.20 an d Localized edema R60.0 [facility] [address] [id number] 06/12/2024 R Joshua Arriaga Encounter for immunization Z23 and Keratosis L57.0 [facility] [address] [facility] [address] [place] [id number] 07/24/2024 R Joshua Arriaga Rhinitis J31.0 [facility] [address] [id number] 08/07/2024 R Joshua Arriaga Acquired hypothyroid ism E03.9 ; Dyslipidemia E78.5 and Neoplasm of uncertain behavior of skin D48.5 [facility] [address] [id number] 08/19/2024 R Joshua Bart Neoplasm of uncertai n behavior of skin D48.5 [facility] [address] [facility] [address] [place], [place] [id number] 09/18/2024 R Joshua Gonzalezfleet Cellulitis L03.90 an d Laceration of leg S81.819A [facility] [address] [facility] [address] [place], [place] [id number] 12/17/2024 Deniz Trego Open wound of right lower extremity, initial encounter S81.801A ; Acquired hypothyroidism E03.9 ; Dyslipidemia E78.5 and BMI 28.0-28.9,adult Z68.28 [facility] [address] [place], [place] [id number] 12/23/2024 R Joshua Gonzalezfleet Actinic keratosis L5 7.0 and BMI 28.0-28.9,adult Z68.28 [facility] [address] [place], [place] [id number] 12/25/2024 R Joshua Gonzalezfleet Actinic keratosis L5 7.0 ; Open wound of left lower extremity, initial encounter S81.802A and Open wound of right lower extremity, subsequent encounter S81.801D [facility] [address] [place], [place] [id number] 01/02/2025 Nallely Cain Visit for suture rem oval Z48.02 [facility] [address] [place] [id number] 01/21/2025 Deniz Trego Open wound of left l ower extremity, subsequent encounter S81.802D and BMI 28.0-28.9,adult Z68.28 [facility] [address] [facility] [address] [place], [place] [id number] 08/14/2024 R Joshua Bart [facility] [address] [facility] [address] [place], [place] [id number] 08/21/2024 R Joshua Gonzalezfleet Acquired hypothyroid ism E03.9 [facility] [address] [facility] [address] [place], [place] [id number] 08/26/2024 R Joshua Bart [facility] [address] [place], [place] [id number] 10/07/2024 R Joshua Bart [facility] [address] [place], [place] [id number] 11/04/2024 R Joshua Bart Localized edema R60. 0 [facility] [address] [place], [place] [id number] 11/14/2024 R Joshua Bart Acquired hypothyroid ism E03.9 [facility] [address] [place], [place] [id number] 12/24/2024 R Joshua Bart [facility] [address] [place], [place] [id number] 01/20/2025 R Joshua Bart Localized edema R60. 0 [facility] [address] [place], [place] [id number] 02/02/2025 R Joshua Bart Screening for osteoporosis Z13.820 [facility] [address] [place], [place] [id number] 02/04/2025 Deniz Trego [facility] [address] [place], [place] [id number] 02/10/2025 R Joshua Bart Acquired hypothyroid ism E03.9 Assessments Encounter Date Diagnosis (ICD Code) Assessment Notes Treatment Notes Treatment Clinical Notes Section Notes 03/25/2024 Wax in ear (ICD-10 - H61.20) Earss irrigated free of all wax. TM's mildly injected 03/25/2024 Localized edema (ICD-10 - R60.0) Continue Metolozone prn only 06/12/2024 Keratosis (ICD-10 - L57.0) Lesion is treated with two 45 second cycles of cryotherapy. If lesion persists after 2 weeks, f/u for shave excision 06/12/2024 Encounter for immunization (ICD-10 - Z23) 07/24/2024 Rhinitis (ICD-10 - J31.0) Continue Claritin. Recommend OTC Flonase. Call for fever. 08/07/2024 Acquired hypothyroidism (ICD-10 - E03.9) 08/07/2024 Dyslipidemia (ICD-10 - E78.5) 08/19/2024 Neoplasm of uncertain behavior of skin (ICD-10 - D48.5) 08/21/2024 Acquired hypothyroidism (ICD-10 - E03.9) 09/18/2024 Cellulitis (ICD-10 - L03.90) 09/18/2024 Laceration of leg (ICD-10 - S81.819A) Instructed on local wound care 11/04/2024 Localized edema (ICD-10 - R60.0) 11/14/2024 Acquired hypothyroidism (ICD-10 - E03.9) 12/17/2024 Acquired hypothyroidism (ICD-10 - E03.9) 12/25/2024 Open wound of left lower extremity, initial encounter (ICD-10 - S81.802A) Wound care instructions given. She is already scheduled for an appointment at the wound care clinic next week regarding the burn on her right leg and will also address the wound on the left leg. 01/02/2025 Visit for suture removal (ICD-10 - Z48.02) Sutures removed with suture removal kit. Healing well. 01/20/2025 Localized edema (ICD-10 - R60.0) 01/21/2025 BMI 28.0-28.9,adult (ICD-10 - Z68.28) 01/21/2025 Open wound of left lower extremity, subsequent encounter (ICD-10 - S81.802D) Keep follow up appt. at [facility] wound care clinic 02/02/2025 Screening for osteoporosis (ICD-10 - Z13.820) 02/10/2025 Acquired hypothyroidism (ICD-10 - E03.9) 02/25/2024 Localized edema (ICD-10 - R60.0) 02/25/2024 Pruritus (ICD-10 - L29.9) 12/17/2024 Open wound of right lower extremity, initial encounter (ICD-10 - S81.801A) 12/23/2024 Actinic keratosis (ICD-10 - L57.0) Schedule follow-up for excision of lesion. 12/23/2024 BMI 28.0-28.9,adult (ICD-10 - Z68.28) 12/25/2024 Actinic keratosis (ICD-10 - L57.0) 12/25/2024 Open wound of right lower extremity, subsequent encounter (ICD-10 - S81.801D) 12/17/2024 Dyslipidemia (ICD-10 - E78.5) 08/07/2024 Neoplasm of uncertain behavior of skin (ICD-10 - D48.5) Schedule follow-up appointment for shave biopsy 12/17/2024 BMI 28.0-28.9,adult (ICD-10 - Z68.28) Plan Of Treatment Pending Test Test Name Order Date Bone density 02/02/2025 Next Appt Details Provider Name:Clyde Sow et, 02/26/2025 04:15:00 PM, [address] [facility], [address], [place], [place], [id number], Insurance Providers Payer Name Payer Address Payer Phone Subscriber Number Group Number Insured Name Patient Relationship to Insured Coverage Start Date Coverage End Date [employer] (MEDICAR E) [address] [address] [place] [address] [id number] Lisa Mcclelland Self - patient is the insured Medications Administered Medication Instructions Date of Administration Dosage Notes Depo- Medrol 40 mg/ml 01/03/2022 1.5 mL Medical (General) History Medical History History ICD Code Hypothyroidism Hiatal Hernia Hyperlipidiemia Osteo Arthritis Presbycusis - bilateral hearing aides Vitamin D deficiency Surgical History Surgery Date(Month/Year) BTL Bilateral Cataract 08/08/2021
--- NOTE | 2025-02-16 13:43 | XR_ITS ---
FINAL REPORT CLINICAL HISTORY: SCREENING COMPARISON: 03/01/2023 FINDINGS: Using L1-4, the bone mineral density of the spine is 0.960 g/cm2, corresponding to T-score of -0.8. Using the left hip, the bone mineral density of the femoral neck is 0.842 g/cm2, corresponding to a T-score of -0.8. Using the right hip, the bone mineral density of the femoral neck is 0.835 g/cm2, corresponding to a T-score of -0.9. NOTE: T-score: Standard deviation compared with peak bone mass of young adult mean. *Following the recommendations of the International Society of Bone densitometry, classification of hip BMD is based on the lower of two T-scores; total hip or femoral neck. IMPRESSION: Normal bone mineral density of the bilateral hips and lumbar spine. Reviewed, Interpreted and Dictated by Cedric Shankar MD Transcribed by Magalys Herman Authenticated and [facility]
== END 2025-02-16 23:59 | disposition home or self-care (01) ==
LOC: RAD 13:41
PROVIDERS: PCP Family Medicine; Visit Provider Family Medicine
DX: Z13.820 Encounter for screening for osteoporosis (principal)
CPT/HCPCS: 77080

== ENCOUNTER 2025-03-09 13:46 | Outpatient (CLI) | payer MEDICARE, SELFPAY ==
--- OUTSIDE RECORDS SUMMARY | 2025-01-21 11:15 | XMS_ITS ---
[facility] Address [address] [facility] [address] [place] [id number] Care Team Providers Care Weather Strip Installer Name Role Phone Clyde Arriaga Primary Care Provider Deniz Silva Unavailable [phone] Allergies No Known Allergies Results Component Value Reference Range Notes H-Wound culture Reviewed date:02/04/2025 03:52:12 PM Interpretation:NL gram stain Performing Lab: Notes/Report: GS Gram Stain: GS No Organisms Seen REASON FOR VISIT poss infection on wound Medications Medication SIG (Take, Route, Frequency, Duration) Notes Start Date End Date Status metOLazone 2.5 MG 1 tablet Orally Once a day prn; Duration: 30 days Active Rosuvastatin Calcium 10 MG 1 tablet Oral ly Once a day; Duration: 30 day(s) 08/14/2024 Active Vitamin D (Cholecalciferol) 50 MCG (2000 UT) 1 capsule Orally Once a day; Duration: 30 day(s) Active Cephalexin 500 MG 1 capsule Orally twi ce a day; Duration: 10 days 01/21/2025 Active Glucosamine 1500 Complex - 2 capsules Orally daily Active Levothyroxine Sodium 112 MCG TAKE 1 TABL ET EVERY DAY; Duration: 90 days Active hydrOXYzine HCl 10 MG 1 tablet as needed Orally three times a day as needed 02/25/2024 Active Social History Tobacco Use: Social History Observation Description Date Details (start date - stop date) Never Smoker NA - NA CURRENT TOBACCO USE: Question Answer Notes Are you a: never smoker Vital Signs Weight 172.2 lbs 01/21/2025 Blood pressure systolic 160 mm Hg 01/22/20 25 Blood pressure diastolic 84 mm Hg 025 Heart Rate 59 /min 01/21/2025 Height 65.5 in 01/21/2025 BMI 28.22 kg/m2 01/21/2025 Encounters Encounter Location Date Provider Diagnosis [facility] [address] [place] [id number] 01/21/2025 Deniz Silva Open wound of left lower extremity, subsequent encounter S81.802D and BMI 28.0-28.9,adult Z68.28 Assessments Encounter Date Diagnosis (ICD Code) Assessment Notes Treatment Notes Treatment Clinical Notes Section Notes 01/21/2025 Open wound of left lower extremity, subsequent encounter (ICD-10 - S81.802D) Keep follow up appt. at [facility] wound care clinic 01/21/2025 BMI 28.0-28.9,adult (ICD-10 - Z68.28) Plan Of Treatment Medication Medication Name Sig Start Date Stop Date Notes Cephalexin 500 MG 1 capsule Orally twi ce a day; Duration: 10 days 01/21/2025 Treatment Notes Assessment Notes Open wound of left lower ext remity, subsequent encounter Keep follow up appt. at [facility] wound care clinic Next Appt Details Follow Up: via phone to repo rt test results, Reason: Progress Notes * Ashlie MCCLELLANDB:1945 (79 yo F)Acc No.[id number]:01/21/2025 Progress Notes Patient: Lisa GIBBONS Provider: Callie Silva M.D. :1945 A ge:79 Y S ex:Female Date:01/21/2025 Address:[address] [place] [address], [place], [id number] Pcp:Clyde Arriaga Subjective: * Chief Complaints: * 1 . Poss infection on wound. * HPI: D ermatology: 79 year old female presents with c/o Wound P t complains of wound lower lt leg for 3-4 weeks. Pt states that she went to Wound Clinic yesterday and was advised to see PCP for possible infection in wound. * ROS: C ARDIOLOGY: no D izziness. n o C hest pain. G ASTROENTEROLOGY: no N ausea. n o V omiting. U ROLOGY: no D ifficulty urinating. n o B lood in urine. * Medical History: H ypothyroidism, Hiatal Hernia, Hyperlipidiemia, Osteo Arthritis, Presbycusis - bilateral hearing aides, Vitamin D deficiency. * Surgical History: B TL , Bilateral Cataract 08/08/2021. * Hospitalization/Major Diagno stic Procedure: D enies Past Hospitalization. * Family History: F ather: unknown. M other: unknown. C maria dolores: daughter has asthma and oral cancer.?1 son(s) [...] times a day as needed , Taking Levothyroxine Sodium 112 MCG Tablet TAKE 1 TABLET EVERY DAY , Taking metOLazone 2.5 MG Tablet 1 tablet Orally Once a day prn , Taking Rosuvastatin Calcium 10 MG Tablet 1 tablet Orally Once a day , Discontinued Mupirocin 2 % Ointment 1 application Externally Twice a day , Medication List reviewed and reconciled with the patient * Allergies: N .K.D.A. Objective: * Vitals: W t: 172.2, Temp: 97.8, BP: 160/84, HR: 59, Nurse: nesha, Ht: 65.5, BMI:28.22. * Examination: G eneral Examination: General Appearance: N AD. S kin: w ound on left lateral distal leg with a dressing in place, minimal drainage present with surrounding dull skin erythema. Assessment: * Assessment: 1. O pen wound of left lower extremity, subsequent encounter - S81.322J (Primary) ?2. B [place] 28.0-28.9,adult - Z68.28 Plan: * Treatment: Notes: Keep follow up appt. at [facility] wound care clinic?? * Procedure Codes: G 2211 Complex e/m visit add on, 1036F TOBACCO NON-USER, G8420 BMI<30 AND >=22 CALC & DOCU * Follow Up: v ia phone to report test results * Images: Billing Information: * Visit Code: 78566 Office Visit, Est Pt., Level 3. * Procedure Codes: G2211 Complex e/m visit add on. 1036F TOBACCO NON-USER. G8420 BMI<30 AND >=22 CALC & DOCU. * Electronic signature of Hansa Silva MD on 03/09/2025 at 01:49 PM EDT Sign off status: Pending * Provider: Callie Silva M.D. Date: 01/21/2025 Generated for Antonio copeland/Zack/Randallitting on: 03/09/2025 01:49 PM EDT History and Physical Notes * HPI (History of Present Illness) Category Sub-Category Detail Notes Category Not es Dermatology Wound Pt complains of wound lower lt leg for 3-4 weeks. Pt states that she went to Wound Clinic yesterday and was advised to see PCP for possible infection in wound Examination Category Sub-Category Detail Notes Category Not es General Examination General Appearance: NAD Skin: wound on left latera l distal leg with a dressing in place, minimal drainage present with surrounding dull skin erythema
--- OUTSIDE RECORDS SUMMARY | 2025-02-02 10:23 | XMS_ITS ---
Author Organization [facility] Address [address] [facility] [address] [facility] [address] [place] [id number] Care Team Providers Care Vp Director Of Finance Name Role Phone Clyde Arriaga Primary Care Provider Deniz Silva Hubert [phone] Results Component Value Reference Range Notes Bone density Reviewed date:02/17/2025 08:31:57 AM Interpretation:normal Performing Lab: Notes/Report: normal REASON FOR VISIT due bone density Encounters Encounter Location Date Provider Diagnosis [facility] [address] [facility] [address] [facility] [address] [place] [id number] 02/02/2025 Clyde Arriaga Screening for osteoporosis Z13.820 Assessments Encounter Date Diagnosis (ICD Code) Assessment Notes Treatment Notes Treatment Clinical Notes Section Notes 02/02/2025 Screening for osteoporosis (ICD-10 - Z13.820) Plan Of Treatment No Information Progress Notes * Lazarus MCCLELLANDaDOB:1945 (79 yo F)Acc No.[id number]:02/02/2025 Patient: Lisa GIBBONS :1945 A ge:79 Y S ex:Female Address:[address] [place] [address] Subjective: * Chief Complaints: * D ue bone density * Medical History: * Surgical History: * Hospitalization/Major Diagno stic Procedure: * Medications: Objective: * Vitals: * Physical Examination: Assessment: * Assessment: 1. S creening for osteoporosis - Z13.820 (Primary) Plan: * Treatment: * Procedure Codes: * true * Date: Generated for Antonio copeland/Zack/Edda on: 0 03/09/2025 01:49 PM EDT
--- OUTSIDE RECORDS SUMMARY | 2025-02-26 12:00 | XMS_ITS ---
[facility] Address [address] [place] [id number] Care Team Providers [facility] Name Role Phone Clyde Arriaga Primary Care Provider Deniz Silva Unavailable [phone] Allergies No Known Allergies Results Component Value Reference Range Notes P-Comprehensive Metabolic Pa roni (CMP) Reviewed date:03/04/2025 11:01:31 PM Interpretation:bun 32, Cr 1.34, gfr 41 Performing Lab: Notes/Report: Test performed by [facility] [address] [place] [address] , [address], [place] [address] Fadi Shafer MD, [employer] CLIA: [id number] Sodium 140 135-145 mmol/L Potassium 3.6 3.5-5.3 mmol/L Chloride 103 97-108 mmol/L CO2 21 20-32 mmol/L Glucose 92 65-99 mg/dL BUN 32 8-23 mg/dL Creatinine 1.34 0.50-1.00 mg/dL Calcium 10.1 8.6-10.4 mg/dL eGFR by Creatinine 41 >59 mL/min/1.73m2 Protein 7.1 6.0-8.3 g/dL Albumin 4.6 3.5-5.3 g/dL Alkaline Phosphatase 60 35-121 IU/L ALT (SGPT) 11 <5-47 IU/L AST (SGOT) 19 <5-40 IU/L Bilirubin, Total 0.5 <0.2-1.2 mg/dL A/G Ratio 1.8 1.1-2.5 P-Lipid Panel Reviewed date:03/04/2025 11:01:32 PM Interpretation:Normal Performing Lab: Notes/Report: Test performed by [facility], [address] , [address] , [place] [address] Fadi Shafer MD, [employer] CLIA: [id number] Cholesterol 183 <200 mg/dL Triglycerides 96 <150 mg/dL HDL Cholesterol 82 >39 mg/dL Cholesterol / HDL Ratio 2.23 0.00-4.44 Ratio Non-HDL Cholesterol 101 <130 mg/dL LDL Cholesterol (Calculation) 82 <130 mg/dL LDL Cholesterol Levels* Less than 100 mg/dL Optimal 100 to 129 mg/dL Near Optimal/ Above Optimal 130 to 159 mg/dL Borderline High 160 to 189 mg/dL High 190 mg/dL and above Very High * Categories as recommended by the 2004 ATPIII guidelines LDL/HDL Ratio 1.0 <3.3 Ratio LDL Cholesterol Patient History Test Date: 02/07/2024 LDL Results: 143 Units: mg/dL % Change: +34% Test Date: 08/07/2024 LDL Results: 152 Units: mg/dL % Change: +6% Test Date: 02/27/2025 LDL Results: 82 Units: mg/dL % Change: -46% P-TSH Reviewed date:03/04/2025 11:01:32 PM Interpretation:0.17 Performing Lab: Notes/Report: Test performed by [facility] [address] [place], [place] [address] [place] , [place] [address] Fadi Shafer MD, Vehicle [employer] CLIA: [id number] TSH 0.17 0.43-5.25 mU/L P-Vitamin D 25-Hydroxy Reviewed date:03/04/2025 11:01:32 PM Interpretation:Normal Performing Lab: Notes/Report: Test performed by [facility] [address] [place], [place] [address] [place] , [place] [address] Fadi Shafer MD, Vehicle [employer] CLIA: [id number] Vitamin D 25-Hydroxy 54.4 30.0-100.0 ng/mL Interpretation of Vitamin D 25 OH: < 20 ng/mL - Deficiency 20 - 29 ng/mL - Insufficiency 30 - 100 ng/mL - Sufficiency > 100 ng/mL - Super-therapeutic- toxicity may occur above this level. Clinical correlation required. REASON FOR VISIT check up with labs and Annual Wellness Visit Medications Medication SIG (Take, Route, Frequency, Duration) Notes Start Date End Date Status Cephalexin 500 MG 1 capsule Orally twi ce a day; Duration: 10 days 01/21/2025 Not-Taking metOLazone 2.5 MG 1 tablet Orally Once a day prn; Duration: 30 days Not-Taking hydrOXYzine HCl 10 MG 1 tablet as needed Orally three times a day as needed 02/25/2024 Not-Taking Levothyroxine Sodium 112 MCG 1 tablet in the morning on an empty stomach Orally Once a day Active Glucosamine 1500 Complex - 2 capsules Or ally daily Active Rosuvastatin Calcium 10 MG 1 tablet Oral ly Once a day 08/14/2024 Active Vitamin D (Cholecalciferol) 50 MCG (1999) 1 capsule Orally Once a day Active Social History Tobacco Use: Social History Observation Description Date Details (start date - stop date) Never Smoker NA - NA CURRENT TOBACCO USE: Question Answer Notes Are you a: never smoker Vital Signs Weight 171.6 lbs 02/26/2025 Blood pressure systolic 160 mm Hg 02/27/20 25 Blood pressure diastolic 70 mm Hg 025 Heart Rate 58 /min 02/26/2025 Height 65.5 in 02/26/2025 BMI 28.12 kg/m2 02/26/2025 Encounters Encounter Location Date Provider Diagnosis [facility] [address] [place] [id number] 02/26/2025 Clyde Arriaga Adult general medica l examination Z00.00 ; Acquired hypothyroidism E03.9 ; Dyslipidemia E78.5 ; Vitamin D deficiency E55.9 ; Menopausal state N95.1 and Screening for breast cancer Z12.39 Assessments Encounter Date Diagnosis (ICD Code) Assessment Notes Treatment Notes Treatment Clinical Notes Section Notes 02/26/2025 Adult general medical examination (ICD-10 - Z00.00) Patient instructed to return to office Annually for Annual Wellness Visits to include annual screenings of Pain assessment, Functional Ability assessment, Cognitive Ability assessment, Fall Risk assessment, Depression screening and Bladder control screening. 02/26/2025 Acquired hypothyroidism (ICD-10 - E03.9) 02/26/2025 Dyslipidemia (ICD-10 - E78.5) 02/26/2025 Vitamin D deficiency (ICD-10 - E55.9) 02/26/2025 Menopausal state (ICD-10 - N95.1) 02/26/2025 Screening for breast cancer (ICD-10 - Z12.39) Plan Of Treatment Medication Medication Name Sig Start Date Stop Date Notes Levothyroxine Sodium 112 MCG 1 tablet in the morning on an empty stomach Orally Once a day Rosuvastatin Calcium 10 MG 1 tablet Orally Once a day 07/21 Vitamin D (Cholecalciferol) 50 MCG (1999 UT) 1 capsule Orally Once a day Treatment Notes Assessment Notes Adult general medical examination Patien t instructed to return to office Annually for Annual Wellness Visits to include annual screenings of Pain assessment, Functional Ability assessment, Cognitive Ability assessment, Fall Risk assessment, Depression screening and Bladder control screening. Pending Test Test Name Order Date Mammogram 02/26/2025 Next Appt Details Follow Up: 6 Months, Reason: Progress Notes * Ashlie MCCLELLANDB:1945 (79 yo F)Acc No.[id number]:02/26/2025 Annual Wellness Visit Patient: Lisa GIBBONS Provider: Clyde Arriaga M.D. :1945 A ge:79 Y S ex:Female Date:02/26/2025 Address:[address] [place] [address], [place], [id number] Subjective: * Chief Complaints: * 1 . check up with labs and Annual Wellness Visit. * HPI: H PI: Patient is here today for a check up with labs and a Medicare Annual Wellness Visit. C ardiology: She is tolerating the rosuvastatin and trying to modify her diet. No weight loss. E ndocrinology: She is due for checkup on her thyroid levels. Denies symptoms. D ermatology: She continues to follow with wound care for the ulcer on her leg. She is satisfied that it is slowly healing. * ROS: O PTHALMOLOGY: Negative for d enies vision issues. * Medical History: H ypothyroidism, Hiatal Hernia, Hyperlipidiemia, Osteo Arthritis, Presbycusis - bilateral hearing aides, Vitamin D deficiency. * Surgical History: B TL , Bilateral Cataract 08/08/2021. * Family History: F ather: unknown. [...] , Taking Vitamin D (Cholecalciferol) 50 MCG (1999 UT) Capsule 1 capsule Orally Once a day , Taking Rosuvastatin Calcium 10 MG Tablet 1 tablet Orally Once a day , Taking Levothyroxine Sodium 112 MCG Tablet 1 tablet in the morning on an empty stomach Orally Once a day , Not-Taking hydrOXYzine HCl 10 MG Tablet 1 tablet as needed Orally three times a day as needed , Not-Taking metOLazone 2.5 MG Tablet 1 tablet Orally Once a day prn , Not-Taking Cephalexin 500 MG Capsule 1 capsule Orally twice a day , Medication List reviewed and reconciled with the patient * Allergies: N .K.D.A. Objective: * Vitals: W t: 171.6, Temp: 97.9, BP: 160/70, HR: 58, Nurse: kirit, Ht: 65.5, BMI:28.12. * Examination: G eneral Examination: General Appearance: N AD. N kailash: s upple, no lymphadenopathy, no thyromegaly. H eart: R SR. L ungs: c lear to auscultation. E xtremities: t race ankle edema. * Physical Examination: G ENERAL: Pain Assessment: P ain level: 1, on a scale of 0-10 (with 10 being extreme pain). F unctional Status Assessment: P atient response to question of how often physical health interferes with daily activities: Almost never. Able to perform ADLs-including meal preparation, grocery shopping, housework, laundry, taking medications or handling finances. Cognitive Status: alert and oriented. Ambulation Status: Fully ambulatory. F all Risk Assessment: I ndependant in ambulation, adequate lighting in home. Patient has NOT fallen or had trouble walking within the past 12 months. D epression Screening: D enies depressed mood or anxiety. Describes emotional health as: positive. B ladder Control Screening: D enies problems. Assessment: * Assessment: 1. A dult general medical examination - Z00.00 (Primary) 2 . A cquired hypothyroidism - E03.9 3 . D yslipidemia - E78.5 4 . V itamin D deficiency - E55.9 5 . M enopausal state - N95.1 6 . S creening for breast cancer - Z12.39 Plan: * Treatment: 2. A cquired hypothyroidism Continue Levothyroxine Sodium Tablet, 112 MCG, 1 tablet in the morning on an empty stomach, Orally, Once a day. L AB: P-TSH (Collection Date & Time - 02/27/2025 08:45 AM) 0 .17 Value Reference Range T SH 0.17 L 0.43-5.25 - mU/L * Clyde Arriaga 03/04/2025 11:01:17 PM EDT > See phone encounter 3.?Dyslipidemia? Continue Rosuvastatin Calcium Tablet, 10 MG, 1 tablet, Orally, Once a day.?LAB: P-Comprehensive Metabolic Panel (CMP) (Collection Date & Time - 02/27/2025 08:45 AM)?bun 32, Cr 1.34, gfr 41* Value Reference Range A /G Ratio 1.8 1.1-2.5 - * A lbumin 4.6 3.5-5.3 - g/dL * A lkaline Phosphatase 60 35-121 - IU/L * A LT (SGPT) 11 <5-47 - IU/L * A ST (SGOT) 19 <5-40 - IU/L * B ilirubin, Total 0.5 <0.2-1.2 - mg/dL * B UN 32 H 8-23 - mg/dL * C alcium 10.1 8.6-10.4 - mg/dL * C hloride 103 97-108 - mmol/L * C O2 21 20-32 - mmol/L * C reatinine 1.34 H 0.50-1.00 - mg/dL * G lucose 92 65-99 - mg/dL * P otassium 3.6 3.5-5.3 - mmol/L * S odium 140 135-145 - mmol/L * P rotein 7.1 6.0-8.3 - g/dL * e GFR by Creatinine 41 L >59 - mL/min/1.73m2 * Clyde Arriaga 03/04/2025 11:01:17 PM EDT > See phone encounter ?LAB: P-Lipid Panel (Collection Date & Time - 02/27/2025 08:45 AM)?Normal* Value Reference Range C holesterol / HDL Ratio 2.23 0.00-4.44 - Ratio * C holesterol 183 <200 - mg/dL * H DL Cholesterol 82 >39 - mg/dL * L DL Cholesterol (Calculation) 82 <130 - mg/d L * L DL/HDL Ratio 1.0 <3.3 - Ratio * N on-HDL Cholesterol 101 <130 - mg/dL * T riglycerides 96 <150 - mg/dL * Clyde Arriaga Joshua 03/04/2025 11:01:17 PM EDT > See phone encounter 4.?Vitamin D deficiency? Continue Vitamin D (Cholecalciferol) Capsule, 50 MCG (1999), 1 capsule, Orally, Once a day.?LAB: P-Vitamin D 25-Hydroxy (Collection Date & Time - 02/27/2025 08:45 AM)? Normal* Value Reference Range V itamin D 25-Hydroxy 54.4 30.0-100.0 - ng/mL * Clyde Arriaga Joshua 03/04/2025 11:01:17 PM EDT > See phone encounter 5.?Screening for breast cancer?Imaging: Mammogram* ChristalSaumya 02/26/2025 04:3 1:05 PM EDT > faxed to [facility] Scheduling * Procedure Codes: G 0439 ANNUAL WELLNESS VST; PPS SUBSQT VST, Modifiers: 25 , G2211 Complex e/m visit add on, 1090F PRES/ABSN URINE INCON ASSESS, 3288F FALL RISK ASSESSMENT DOCD, 1170F FXNL STATUS ASSESSED, 1126F AMNT PAIN NOTED NONE PRSNT, 1159F MED LIST DOCD IN RD, 1003F LEVEL OF ACTIVITY ASSESS, 1036F TOBACCO NON-USER, 3017F COLORECTAL CA SCREEN DOC REV * Preventive Medicine: Counseling: E motional health: D iscussed ways to improve socialization. B ladder control: M ethods of controlling or managing leakage of urine discussed. E xercise: Patient advised to start, increase or maintain level of exercise/physical activity. I njury prevention: F all prevention discussed. Discussed need for cane/walker. Potential trip hazards discussed. Immunizations: P neumococcal r ecommended. I nfluenza u p to date. Screening / Special Tests: M ammogram R ecent history: 07/26/2023, negative, recommended today. C olonoscopy R ecent history:, Cologuard: 03/05/2023, negative. B one mineral Density R ecent history: 02/16/2025, normal. * Follow Up: 6 Months * Images: Billing Information: * Visit Code: 33514 Office Visit, Est Pt., Level 3. * Procedure Codes: G0439 ANNUAL WELLNESS VST; PPS SUBSQT VST. Modifiers: 25 G2211 Complex e/m visit add on. 1090F PRES/ABSN URINE INCON ASSESS. 3288F FALL RISK ASSESSMENT DOCD. 1170F FXNL STATUS ASSESSED. 1126F AMNT PAIN NOTED NONE PRSNT. 1159F MED LIST DOCD IN RCRD. 1003F LEVEL OF ACTIVITY ASSESS. 1036F TOBACCO NON-USER. 3017F COLORECTAL CA SCREEN DOC REV. * Electronic signature of Clyde Arriaga MD on 03/09/2025 at 01:49 PM EDT Sign off status: Pending * Provider: Clyde Arriaga M.D. Date: 0 02/26/2025 Generated for Antonio copeland/Famashag/eTransmitting on: 0 03/09/2025 01:49 PM EDT History and Physical Notes * HPI (History of Present Illness) Category Sub-Category Detail Notes Category Not es Dermatology She continues t o follow with wound care for the ulcer on her leg. She is satisfied that it is slowly healing. Endocrinology She is due for checkup on her thyroid levels. Denies symptoms Cardiology She is tolerati ng the rosuvastatin and trying to modify her diet. No weight loss HPI Patient is here today for a check up with labs and a Medicare Annual Wellness Visit Physical Examination Category Sub-Category Detail Notes Section Note s GENERAL Pain Assessment: Pain level: 1, on a scale of 0-10 (with 10 being extreme pain) Functional Status Assessment: Patient re sponse to question of how often physical health interferes with daily activities: Almost never. Able to perform ADLs-including meal preparation, grocery shopping, housework, laundry, taking medications or handling finances.Cognitive Status: alert and oriented.Ambulation Status: Fully ambulatory Fall Risk Assessment: Independant in amb ulation, adequate lighting in home. Patient has NOT fallen or had trouble walking within the past 12 months Depression Screening: Denies depressed m ood or anxiety. Describes emotional health as: positive Bladder Control Screening: Denies proble ms Examination Category Sub-Category Detail Notes Category Not es General Examination Heart: RSR Lungs: clear to auscultatio n Extremities: trace ankle edema General Appearance: NAD Neck: supple, no lymphaden opathy, no thyromegaly
--- NOTE | 2025-03-09 13:48 | MM_ITS ---
PROCEDURE INFORMATION: Exam: MG Bilateral Screening 3D Mammography Exam date and time: 03/09/2025 1:57 PM Age: 79 years old Clinical indication: Screening examination TECHNIQUE: Imaging protocol: Bilateral Screening tomosynthesis and 2D mammography including computer-aided detection (CAD) when performed. COMPARISON: 1. MG MM DIG SCREENING MAMM BI W/CAD 07/26/2023 12:47 PM 2. MG MM DIG SCREENING MAMM BI W/CAD 06/15/2022 3:52 PM FINDINGS: MAMMOGRAPHY: Breast composition: There are scattered areas of fibroglandular density. Mass: No suspicious masses. Architectural distortion: None. Calcifications: No suspicious calcifications. Asymmetric density: None. Skin thickening: None. Axillary adenopathy: None. IMPRESSION: No mammographic evidence of malignancy. Annual screening is recommended unless otherwise clinically indicated. ASSESSMENT: BI-RADS Category 1: Negative.
--- OUTSIDE RECORDS SUMMARY | 2025-03-09 13:49 | XMS_ITS | Patient Health Record ---
Author Organization [facility] Address [address] [facility] [address] [place] [id number] Care Team Providers Care Underwriter Mortgage Loan Name Role Phone Clyde Arriaga Primary Care Provider [phone] Deniz Silva Unavailable [phone] Nallely Cain Unavailable [phone] Allergies No Known Allergies Results Component Value Reference Range Notes P-Surgical Pathology Reviewed date:01/06/2025 10:26:21 AM Interpretation:Hypertrophic [...] in a container of formalin labeled Lisa Mcclelland skin lesion. Per the requisition the site [...] submitted in cassette 1A, 09/20; 1B, 11/18. (TMG,AJC,lh6) Grossing services provided by [facility], [facility], d/b/a [address] [place], [address] Montrell Goncalves MD, Pipe Threading Machine Operator. Microscopic Description: There is hypertrophy of the [...] End of Report Technical services provided by [facility], [facility], d/b/a [address] , [place] [address] Montrell Goncalves MD, Pipe Threading Machine Operator. Case reviewed and diagnosis rendered at [facility], [facility], d/b/a [address] , [place] [address] Montrell Goncalves MD, Pipe Threading Machine Operator. CONFIDENTIAL H-Wound culture Reviewed date:02/04/2025 03:52:12 PM Interpretation:NL gram stain Performing Lab: Notes/Report: GS Gram Stain: GS No Organisms Seen Bone density Reviewed date:02/17/2025 08:31:57 AM Interpretation:normal Performing Lab: Notes/Report: normal H-Aerobe ID and Sensitivitiy Reviewed date:02/04/2025 03:52:12 PM Interpretation: Performing Lab: Notes/Report: AERIDSRES Final report AERIDSRES1 Corynebacterium simulans AERIDSRES1 Performed at: [facility] AERIDSRES1 [address] [place], [place] [id number] AERIDSRES1 Salesforce Business Analyst: Anisha Morillo PhD, Phone: [phone] AERIDSRES1 Comment AERIDSRES5 S = Susceptible; I = Intermediate; R = Resistant AERIDSRES5 P = Positive; N = Negative AERIDSRES5 MICS are expressed i n micrograms per mL AERIDSRES5 Antibiotic RSLT#1 RS LT#2 RSLT#3 AERIDSRES5 RSLT#4 AERIDSRES5 Erythromycin S AERIDSRES5 Penicillin S AERIDSRES5 Tetracycline S AERIDSRES5 Vancomycin S AERIDSRES5 Performed at: [facility] AERIDSRES5 [address], [place] [id number] AERIDSRES5 Salesforce Business Analyst: Anisha Morillo PhD, Phone: [phone] AERIDSRES5 Comment P-Surgical Pathology Reviewed date:08/26/2024 09:46:22 AM Interpretation:Hypertrophic [...] and totally submitted in cassette 1A, 09/20. (AES,SA12,) Grossing services provided by [facility], d/b/a [facility] [address] [facility] [place], [address] Montrell Goncalves MD, Pipe Threading Machine Operator. Microscopic Description: There is hypertrophy of the [...] End of Report Technical services provided by [facility], [facility], d/b/a [facility] [address] [place] [address] , [place] [address] Montrell Goncalves MD, Pipe Threading Machine Operator. Case reviewed and diagnosis rendered at [facility], [facility] d/b/a [facility] [address] [place] [address] , [place] [address] Montrell Goncalves MD, Pipe Threading Machine Operator. CONFIDENTIAL P-Vitamin D 25-Hydroxy Reviewed date:03/04/2025 11:01:32 PM Interpretation:Normal Performing Lab: Notes/Report: Test performed by [facility] [address] , [address], [place] [address] Fadi Shafer MD, Pipe Threading Machine Operator CLIA: [id number] Vitamin D 25-Hydroxy 54.4 30.0-100.0 ng/mL Interpretation of Vitamin D 25 [place]: < 20 ng/mL - Deficiency 20 - 29 ng/mL - Insufficiency 30 - 100 ng/mL - Sufficiency > 100 ng/mL - Super-therapeutic- toxicity may occur above this level. Clinical correlation required. P-TSH Reviewed date:03/04/2025 11:01:32 PM Interpretation:0.17 Performing Lab: Notes/Report: Test performed by [facility] [address] , [address], [place] [address] Fadi Shafer MD, Pipe Threading Machine Operator CLIA: [id number] TSH 0.17 0.43-5.25 mU/L P-Lipid Panel Reviewed date:03/04/2025 11:01:32 PM Interpretation:Normal Performing Lab: Notes/Report: Test performed by [facility] [address] [place] [address], [address], [place] [address] Fadi Shafer MD, Pipe Threading Machine Operator CLIA: [id number] Cholesterol 183 <200 mg/dL Triglycerides 96 <150 [...] Units: mg/dL % Change: -46% P-TSH Reviewed date:08/14/2024 08:43:23 AM Interpretation:Normal Performing Lab: Notes/Report: [facility] , [place] [address] Fadi Shafer MD, Pipe Threading Machine Operator CLIA: [id number] TSH 0.99 0.43-5.25 mU/L P-Lipid Panel Reviewed date:08/14/2024 08:43:23 AM Interpretation:chol 250, non-hdl 173, ldl 152 Performing Lab: Notes/Report: Test performed by [facility], [address] [place] [address] Fadi Shafer MD, Pipe Threading Machine Operator CLIA: [id number] Cholesterol 250 <200 mg/dL Triglycerides 105 <150 [...] Results: 152 Units: mg/dL % Change: +6% P-Comprehensive Metabolic Pa roni (CMP) Reviewed date:08/14/2024 08:43:23 AM Interpretation:K+ 5.5, bun 27, Cr 1.2, gfr 47 Performing Lab: Notes/Report: Test performed by [facility] [address] [place] [address] , [place] [address] Fadi Shafer MD, Pipe Threading Machine Operator CLIA: [id number] Sodium 142 135-145 mmol/L Potassium 5.5 3.5-5.3 [...] 0.7 <0.2-1.2 mg/dL A/G Ratio 2.1 1.1-2.5 P-Comprehensive Metabolic Pa roni (CMP) Reviewed date:03/04/2025 11:01:31 PM Interpretation:bun 32, Cr 1.34, gfr 41 Performing Lab: Notes/Report: Test performed by [facility], [facility] [address] [place] [address] , [address], [place] [address] Fadi Shafer MD, Pipe Threading Machine Operator CLIA: [id number] Sodium 140 135-145 mmol/L Potassium 3.6 3.5-5.3 [...] 0.5 <0.2-1.2 mg/dL A/G Ratio 1.8 1.1-2.5 CBC Fingerstick (in house) Reviewed date:07/28/2024 11:09:39 [...] - 38 plat 197 100 - 400 Reason For Referral Reason [facility] wound care Diagnosis 1 Open wound of right lower extremity, initial encounter (S81.801A) Referral Organization [facility] Referring Provider First Name Deniz Referring Provider Last Name Shira Referring Provider Speciality Family Pra anjanaice Referred Provider Specialty Physical The rapist General Notes Saumya Siegel 2024 02:26:23 PM > faxed to [facility] PT, Saumya Siegel 12/18/2024 09:41:09 AM > 12/31/2024 at 3pm [...] times a day as needed 02/25/2024 Not-Taking Glucosamine 1500 Complex - 2 capsules Or ally daily Active Rosuvastatin Calcium 10 MG 1 tablet Oral ly Once a day 08/14/2024 Active Vitamin D (Cholecalciferol) 50 MCG (2000 UT) 1 capsule Orally Once a day Active Levothyroxine Sodium 100 MCG 1 tablet in the morning on an empty stomach Orally Once a day; Duration: 90 days Active Immunizations Vaccine Route Administration Date Status [...] Status Risk Notes Problem Vitamin D deficiency (51733474) Vitamin D deficiency (E55.9) Active confirmed Problem Rhinitis (04315919) Rhinitis (J31.0) Active confirmed Problem Environmental allergy (204643823) Environmental allergies (Z91.048) Active confirmed Problem Localized edema (7913795) Localized edema (R60.0) Active confirmed Problem Acquired hypothyroidism (372904316) Acquired hypothyroidism (E03.9) Active confirmed Problem Squamous cell carcinoma of skin (231440993) Squamous cell carcinoma of skin (C44.92) Active confirmed Problem Dyslipidemia (770638225) Dyslipidemia (E78.5) Active confirmed Problem 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 Problem Bilateral arthritis of knees (6055750237040943 ) Primary osteoarthritis of knees, bilateral (M17.0) Active confirmed Problem Menopausal state (938268456) Menopausal state (N95.1) Active confirmed Problem Primary squamous cell carcinoma of skin of right lower limb (9273694975441556 ) 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) Active confirmed Vital Signs Heart Rate 58 /min 02/26/2025 Blood pressure diastolic 70 mm Hg 02/26/2025 Height 65.5 in 02/26/2025 Blood pressure systolic 160 mm Hg 02/26/2025 Weight 171.6 lbs 02/26/2025 BMI 28.12 kg/m2 02/26/2025 Encounters Encounter Location Date Provider Diagnosis [facility] [address] [place] [id number] 03/25/2024 R Joshua Arriaga Wax in ear H61.20 an d Localized edema R60.0 [facility] [address] [place] [id number] 06/12/2024 R Joshua Arriaga Encounter for immunization Z23 and Keratosis L57.0 [facility] [address] [place] [id number] 07/24/2024 R Joshua Arriaga Rhinitis J31.0 [facility] [address] [place] [id number] 08/07/2024 R Joshua Macieleet Acquired hypothyroid ism E03.9 ; Dyslipidemia E78.5 and Neoplasm of uncertain behavior of skin D48.5 [facility] [address] [place] [id number] 08/19/2024 R Joshua Echolst Neoplasm of uncertai n behavior of skin D48.5 [facility] [address] [place], [place] [id number] 09/18/2024 R Joshua Echolst Cellulitis L03.90 an d Laceration of leg S81.819A [facility] [address] [place], [place] [id number] 12/17/2024 Deniz Remington Open wound of right lower extremity, initial encounter S81.801A ; Acquired hypothyroidism E03.9 ; Dyslipidemia E78.5 and BMI 28.0-28.9,adult Z68.28 [facility] [address] [place] [id number] 12/23/2024 R Joshua Echolst Actinic keratosis L5 7.0 and BMI 28.0-28.9,adult Z68.28 [facility] [address] [place] [id number] 12/25/2024 R Joshua Macieleet Actinic keratosis L5 7.0 ; Open wound of left lower extremity, initial encounter S81.802A and Open wound of right lower extremity, subsequent encounter S81.801D [facility] [address] [place], [place] [id number] 01/02/2025 Nallely Cain Visit for suture rem oval Z48.02 [facility] [address] [place], [place] [id number] 01/21/2025 Deniz Remington Open wound of left l ower extremity, subsequent encounter S81.802D and BMI 28.0-28.9,adult Z68.28 [facility] [address] [place], [place] [id number] 02/26/2025 R Joshua Bart Adult general medica l examination Z00.00 ; Acquired hypothyroidism E03.9 ; Dyslipidemia E78.5 ; Vitamin D deficiency E55.9 ; Menopausal state N95.1 and Screening for breast cancer Z12.39 [facility] [address] [place] [id number] 08/14/2024 R Joshua Bart [facility] [address] [place], [place] [id number] 08/21/2024 R Joshua Bart Acquired hypothyroid ism E03.9 [facility] [address] [place] [id number] 08/26/2024 R Joshua Bart [facility] [address] [place] [id number] 10/07/2024 R Joshua Brat [facility] [address] [place] [id number] 11/04/2024 R Joshua Bart Localized edema R60. 0 [facility] [address] [place] [id number] 11/14/2024 R Joshua Bart Acquired hypothyroid ism E03.9 [facility] [address] [place] [id number] 12/24/2024 R Joshua Bart [facility] [address] [place] [id number] 01/20/2025 R Ojshua Bart Localized edema R60. 0 [facility] [address] [place] [id number] 02/02/2025 R Joshua Bart Screening for osteoporosis Z13.820 [facility] [address] [place] [id number] 02/04/2025 Deniz Remington [facility] [address] [place] [id number] 02/10/2025 R Joshua Arriaga Acquired hypothyroid ism E03.9 [facility] [address] [place] [id number] 02/17/2025 R Joshua Arriaga [facility] [address] [facility] [address] [place] [id number] 03/04/2025 R Joshua Arriaga Acquired hypothyroid ism E03.9 Assessments Encounter Date [...] - S81.802D) Keep follow up appt. at [facility] wound care clinic 02/02/2025 Screening for osteoporosis (ICD-10 - Z13.820) 02/10/2025 Acquired hypothyroidism (ICD-10 - E03.9) 12/17/2024 Open wound of right lower extremity, initial encounter (ICD-10 - S81.801A) 12/25/2024 Actinic keratosis (ICD-10 - L57.0) 02/26/2025 Acquired hypothyroidism (ICD-10 - E03.9) 02/26/2025 Adult general medical examination (ICD-10 - Z00.00) Patient instructed to return to office Annually for Annual Wellness Visits to include annual screenings of Pain assessment, Functional Ability assessment, Cognitive Ability assessment, Fall Risk assessment, Depression screening and Bladder control screening. 03/04/2025 Acquired hypothyroidism (ICD-10 - E03.9) 12/23/2024 Actinic keratosis (ICD-10 - L57.0) Schedule follow-up for excision of lesion. 12/23/2024 BMI 28.0-28.9,adult (ICD-10 - Z68.28) 02/26/2025 Dyslipidemia (ICD-10 - E78.5) 12/25/2024 Open wound of right lower extremity, subsequent encounter (ICD-10 - S81.801D) 12/17/2024 Dyslipidemia (ICD-10 - E78.5) 08/07/2024 Neoplasm of uncertain behavior of skin (ICD-10 - D48.5) Schedule follow-up appointment for shave biopsy 02/26/2025 Vitamin D deficiency (ICD-10 - E55.9) 12/17/2024 BMI 28.0-28.9,adult (ICD-10 - Z68.28) 02/26/2025 Menopausal state (ICD-10 - N95.1) 02/26/2025 Screening for breast cancer (ICD-10 - Z12.39) Plan Of Treatment Pending Test Test Name Order Date Mammogram 02/26/2025 Insurance Providers Payer Name Payer Address Payer Phone Subscriber Number Group Number Insured Name Patient Relationship to Insured Coverage Start Date Coverage End Date [employer] (MEDICAR E) [address] [address] [place] [address] [id number] Lisa Mcclelland Self - patient is the insured Medications Administered Medication Instructions Date of Administration Dosage Notes Depo- Medrol 40 mg/ml 01/03/2022 1.5 mL Medical (General) History Medical History History ICD Code Hypothyroidism Hiatal Hernia Hyperlipidiemia Osteo Arthritis Presbycusis - bilateral hearing aides Vitamin D deficiency Surgical History Surgery Date(Month/Year) BTL Bilateral Cataract 08/08/2021
== END 2025-03-09 23:59 | disposition home or self-care (01) ==
LOC: RAD 13:46
PROVIDERS: PCP Family Medicine; Visit Provider Family Medicine
DX: Z12.31 Encounter for screening mammogram for malignant neoplasm of breast (principal); R92.323 Mammographic fibroglandular density, bilateral breasts
CPT/HCPCS: 77063; 77067

== ENCOUNTER 2025-03-17 15:00 | Outpatient (RCR) | payer MEDICARE, SELFPAY ==
--- NOTE | 2025-03-05 13:22 | HMH.RHREAS ---
Rehab Reassessment Rehab OP Re-assessment Start: 02/24/25 15:14 Freq: Status: Active Protocol: Document 03/05/25 13:14 BHAVNA (Rec: 03/05/25 13:21 PHORCONNIE [id number]) E-signed By Josh Stephens, PT [facility] Wound Assessment Tool Assessment Wound size 2=Length x Width 4--<16 sq cm Wound depth 3=Full thickness skin loss involving damage or necrosis of Wound edges 3=Well-defined, not attached to wound base Wound undermining 1=None present Necrotic tissue type 2=White/newell non-viable tissue &/or non-adherent yellow slough Necrotic tissue 2=<25% of wound bed covered amount Exudate type 3=Serosanguineous: thin, watery, pale red/pink Exudate amount 3=Small Skin color 1=[place] or normal for ethnic group surrounding wound Peripheral tissue 1=No swelling or edema edema Peripheral tissue 1=None present induration Granulation tissue 2=Bright, beefy red;75% to 100% of wound filled &/or tissue overgrowth Epithelialization 4=25% to < 50% wound covered Wound assessment 28 total score Rehab Re-assessment Subjective Subjective Pt reports no c/o pain or tenderness in the armin-wound skin. No discomfort with dressing changes. Objective Objective Notes L king wound: L= 3.3 cm, W= 4.8 cm, D= 0.3 cm 90% granulation tissue with 10% slough. Wound has healed by 57% of surface area vs initial evaluation. Assessment Progress Assessment Progressing as Expected Assessment Notes Pt continues to have steady healing of her L king wound with increased granulation tissue and reduced total surface area. Skilled therapy remains indicated to continue improved healing of her LE wound and to aid pt return to PLOF. Patient goals met ST LT Plan Plan Continue per initial POC. Frequency of Therapy 2 x/wk Duration of therapy 4 wks Time and Billing Re-Eval Time 11 Re-Eval Billing 0 Units Charge for PT No reassessment? PHYSICIAN CERTIFICATION: I certify the specified therapy services for Lisa Ladd are required, authorized, and reviewed every 30 days.
== END 2025-03-17 23:59 | disposition home or self-care (01) ==
LOC: PT 15:00
PROVIDERS: PCP Family Medicine; Visit Provider Family Medicine
DX: S81.801A Unspecified open wound, right lower leg, initial encounter (principal)
CPT/HCPCS: 97597

== ENCOUNTER 2025-04-06 13:00 | Outpatient (RCR) | payer MEDICARE, SELFPAY ==
--- NOTE | 2025-04-07 07:54 | HMH.RHREAS ---
Rehab Reassessment Rehab OP Re-assessment Start: 03/20/25 15:58 Freq: Status: Active Protocol: Document 04/07/25 07:45 BHAVNA (Rec: 04/07/25 07:54 PHORCONNIE [id number]) E-signed By Josh Stephens, PT [facility] Wound Assessment Tool Assessment Wound size 2=Length x Width 4--<16 sq cm Wound depth 3=Full thickness skin loss involving damage or necrosis of Wound edges 2=Distinct, outline clearly visible, attached, even with wound base Wound undermining 1=None present Necrotic tissue type 1=Non visible Necrotic tissue 1=None visible amount Exudate type 3=Serosanguineous: thin, watery, pale red/pink Exudate amount 3=Small Skin color 1=[place] or normal for ethnic group surrounding wound Peripheral tissue 1=No swelling or edema edema Peripheral tissue 1=None present induration Granulation tissue 2=Bright, beefy red;75% to 100% of wound filled &/or tissue overgrowth Epithelialization 2=75% to < 100% wound covered &/or epithelial tissue extends > 0.5cm Wound assessment 23 total score Rehab Re-assessment Subjective Subjective Pt reports no c/o pain at this time in the L Lower leg and is independent with all dressing changes at home. Objective Objective Notes L king wound: L= 1.8 cm, W= 2.6 cm, D= 0.1 cm 100% granulation tissue throughout wound bed. Wound has healed by 87% of surface area vs initial evaluation. Assessment Progress Assessment Progressing as Expected Assessment Notes Pt continues to have steady healing of her L king wound with increased granulation tissue and reduced total surface area. Pt is independent with all dressing changes at this time. No further skilled therapy services indicated at this time and pt is comfortable with performing all wound care at home. Wound Patient Goals Wound Short Term All previous STG goals have been met and no further Patient Goals goal are necessary. Wound Music Composer All previous LTG goals have been met and no further Patient Goals goal are necessary. Plan Plan Pt will d/c to independent home care at this time. No further skilled wound care necessary currently. Frequency of Therapy 0 Duration of Therapy 0 Time and Billing Re-Eval Time 15 Re-Eval Billing 0 Units Charge for PT No reassessment? PHYSICIAN CERTIFICATION: I certify the specified therapy services for Lisa Kevin Hisle are required, authorized, and reviewed every 30 days.
== END 2025-04-06 23:59 | disposition home or self-care (01) ==
LOC: PT 13:00
PROVIDERS: PCP Family Medicine; Visit Provider Family Medicine
DX: S81.801A Unspecified open wound, right lower leg, initial encounter (principal); W22.8XXA Striking against or struck by other objects, initial encounter
CPT/HCPCS: 97597